=== PATIENT | female | born 1960 | race African-American/Black ===

== ENCOUNTER 2018-02-14 01:13 | Inpatient (IN) | payer MEDICARE, BC ==
[2018-02-14] MEDS: morphine 4 MG/ML VIAL IV ×2 (03:34→21:36)
[2018-02-14] MEDS: ONDANSETRON 4 MG INJ IV (03:34)
[2018-02-14 05:47] LABS: ADD MAN DIFF? NO
[2018-02-14 05:50] LABS: BASOPHILS % 0.2 % (0.0-2.0); EOSINOPHILS % 0.2 % (0.0-7.0); HEMATOCRIT 27.7 % (37.0-47.0); HEMOGLOBIN 9.3 g/dl (12.0-16.0); LYMPHOCYTES # 0.9 10^3/ul (0.8-2.9); LYMPHOCYTES % 7.4 % (15.0-51.0); MEAN CORPUSCULAR HGB CONC 33.6 g/dl (32.0-37.0); MEAN CORPUSCULAR VOLUME 92.3 fl (82.0-101.0); MEAN PLATELET VOLUME 10.2 fl (7.4-10.4); MONOCYTE # 0.6 10^3/ul (0.3-0.9); MONOCYTES % 4.8 % (0.0-11.0); NEUTROPHIL # 10.1 10^3/ul (1.6-7.5); NEUTROPHILS % 87.1 % (39.0-77.0); PLATELET COUNT 267 10^3/UL (140-415); RED CELL DISTRIBUTION WIDTH 13.6 % (11.5-14.5)
[2018-02-14 05:50] LABS: WHITE BLOOD COUNT 11.6 10^3/ul (4.8-10.8)
[2018-02-14 06:13] LABS: ANION GAP 9 (5-13); BLOOD UREA NITROGEN 19 mg/dl (7-20); CALCIUM 9.6 mg/dl (8.4-10.2); CARBON DIOXIDE 29 mmol/L (21-31); CHLORIDE 103 mmol/L (97-110); CREATININE 4.74 mg/dl (0.44-1.00); Estimated GFR 11 mL/min (>60); GLUCOSE 178 mg/dl (70-220); POTASSIUM 5.5 mmol/L (3.5-5.1); SODIUM 141 mmol/L (135-144)
[2018-02-14 06:21] LABS: TROPONIN-I 0.032 ng/ml (0.000-0.120)
[2018-02-14] MEDS ORDERED: ACETAMINOPHEN 325 MG TAB PO (12:00)
[2018-02-14] MEDS: HYDROmorphONE 0.5 MG/0.5 ML SYG IV (13:16)
[2018-02-14] MEDS ORDERED: ZOLPIDEM 5 MG TAB PO (14:30)
[2018-02-14] MEDS ORDERED: SOD CHLORIDE 0.9% 250 ML IV (17:00)
[2018-02-14] MEDS: SEVELAMER CARBONATE 0.8 GM PKT PO (17:10)
[2018-02-14] MEDS: FAMOTIDINE 20 MG TAB PO (17:10)
[2018-02-14] MEDS ORDERED: SODIUM CHLORIDE 0.9% 250 ML BAG IV* (17:30)
[2018-02-14] MEDS ORDERED: morphine 2 MG INJ IV (17:30)
[2018-02-14] MEDS: BACLOFEN 10 MG TAB PO (21:00)
[2018-02-14] MEDS: HEPARIN 5,000 UNIT/1 ML VIAL SC (21:31)
[2018-02-15 05:03] LABS: ADD MAN DIFF? NO
[2018-02-15 05:13] LABS: BASOPHIL # 0.1 10^3/ul (0.0-0.1); BASOPHILS % 0.7 % (0.0-2.0); EOSINOPHILS # 0.3 10^3/ul (0.0-0.5); EOSINOPHILS % 3.9 % (0.0-7.0); HEMATOCRIT 24.1 % (37.0-47.0); LYMPHOCYTES # 2.5 10^3/ul (0.8-2.9); LYMPHOCYTES % 34.4 % (15.0-51.0); MEAN CORPUSCULAR HEMOGLOBIN 30.7 pg (29.0-33.0); MEAN CORPUSCULAR HGB CONC 33.2 g/dl (32.0-37.0); MEAN CORPUSCULAR VOLUME 92.3 fl (82.0-101.0); MEAN PLATELET VOLUME 10.4 fl (7.4-10.4); MONOCYTE # 0.7 10^3/ul (0.3-0.9); MONOCYTES % 9.6 % (0.0-11.0); NEUTROPHIL # 3.8 10^3/ul (1.6-7.5); NEUTROPHILS % 51.1 % (39.0-77.0); PLATELET COUNT 251 10^3/UL (140-415); RED BLOOD COUNT 2.61 10^6/ul (4.20-5.40); RED CELL DISTRIBUTION WIDTH 13.5 % (11.5-14.5)
[2018-02-15 05:13] LABS: WHITE BLOOD COUNT 7.4 10^3/ul (4.8-10.8)
[2018-02-15 05:38] LABS: ANION GAP 9 (5-13); BLOOD UREA NITROGEN 32 mg/dl (7-20); CALCIUM 9.7 mg/dl (8.4-10.2); CARBON DIOXIDE 29 mmol/L (21-31); CHLORIDE 103 mmol/L (97-110); Estimated GFR 7 mL/min (>60); GLUCOSE 96 mg/dl (70-220); MAGNESIUM 2.3 mg/dl (1.7-2.5); SODIUM 141 mmol/L (135-144)
[2018-02-15 05:38] LABS: PHOSPHORUS 6.8 mg/dl (2.5-4.9)
[2018-02-15 05:42] LABS: HEMOGLOBIN A1C 5.8 % (0-5.9)
[2018-02-15] MEDS: SEVELAMER CARBONATE 0.8 GM PKT PO ×3 (07:50→17:19)
[2018-02-15] MEDS: FAMOTIDINE 20 MG TAB PO (09:00)
[2018-02-15] MEDS: BACLOFEN 10 MG TAB PO ×3 (09:00→21:43)
[2018-02-15] MEDS ORDERED: CLOPIDOGREL 75 MG TAB PO (09:00)
[2018-02-15] MEDS: HEPARIN 5,000 UNIT/1 ML VIAL SC ×2 (09:00→22:13)
[2018-02-15 09:10] LABS: HEPATITIS B SURFACE ANTIGEN NEGATIVE (NEGATIVE)
[2018-02-15 09:25] LABS: IMMEDIATE SPIN CROSSMATCH 1 3
[2018-02-15] MEDS: HEPARIN 1000 UNITS/ML 10 ML INJ CATHETER (12:10)
[2018-02-15] MEDS: HYDROCODONE/APAP (5/325) TAB PO ×2 (17:33→21:44)
[2018-02-16 07:58] LABS: ADD MAN DIFF? NO
[2018-02-16 08:04] LABS: WHITE BLOOD COUNT 7.7 10^3/ul (4.8-10.8)
[2018-02-16 08:04] LABS: BASOPHIL # 0.1 10^3/ul (0.0-0.1); BASOPHILS % 0.6 % (0.0-2.0); EOSINOPHILS # 0.3 10^3/ul (0.0-0.5); EOSINOPHILS % 3.6 % (0.0-7.0); HEMATOCRIT 32.1 % (37.0-47.0); HEMOGLOBIN 10.4 g/dl (12.0-16.0); LYMPHOCYTES # 2.7 10^3/ul (0.8-2.9); LYMPHOCYTES % 35.5 % (15.0-51.0); MEAN CORPUSCULAR HEMOGLOBIN 29.7 pg (29.0-33.0); MEAN CORPUSCULAR HGB CONC 32.4 g/dl (32.0-37.0); MEAN CORPUSCULAR VOLUME 91.7 fl (82.0-101.0); MEAN PLATELET VOLUME 11.4 fl (7.4-10.4); MONOCYTE # 0.8 10^3/ul (0.3-0.9); MONOCYTES % 10.1 % (0.0-11.0); NEUTROPHIL # 3.8 10^3/ul (1.6-7.5); NEUTROPHILS % 49.8 % (39.0-77.0); PLATELET COUNT 141 10^3/UL (140-415); RED CELL DISTRIBUTION WIDTH 13.6 % (11.5-14.5)
[2018-02-16 08:23] LABS: ANION GAP 13 (5-13); BLOOD UREA NITROGEN 28 mg/dl (7-20); CALCIUM 9.9 mg/dl (8.4-10.2); CARBON DIOXIDE 28 mmol/L (21-31); CHLORIDE 100 mmol/L (97-110); CREATININE 6.66 mg/dl (0.44-1.00); Estimated GFR 8 mL/min (>60); GLUCOSE 74 mg/dl (70-220); POTASSIUM 5.2 mmol/L (3.5-5.1); SODIUM 141 mmol/L (135-144)
[2018-02-16] MEDS: BACLOFEN 10 MG TAB PO ×3 (09:12→20:43)
[2018-02-16] MEDS: FAMOTIDINE 20 MG TAB PO (09:12)
[2018-02-16] MEDS: SEVELAMER CARBONATE 0.8 GM PKT PO ×3 (09:12→17:55)
[2018-02-16] MEDS: HYDROCODONE/APAP (5/325) TAB PO ×2 (09:32→15:13)
[2018-02-16] MEDS: DOCUSATE SODIUM 100 MG CAP PO (09:32)
[2018-02-16] MEDS: HEPARIN 5,000 UNIT/1 ML VIAL SC ×2 (09:34→20:51)
[2018-02-17] MEDS: ONDANSETRON 4 MG INJ IV ×2 (07:43→21:01)
[2018-02-17] MEDS: BACLOFEN 10 MG TAB PO ×3 (08:49→20:59)
[2018-02-17] MEDS: FAMOTIDINE 20 MG TAB PO (08:49)
[2018-02-17] MEDS: SEVELAMER CARBONATE 0.8 GM PKT PO ×3 (08:49→17:32)
[2018-02-17] MEDS: HEPARIN 5,000 UNIT/1 ML VIAL SC ×2 (08:56→20:59)
[2018-02-17] MEDS: ACETAMINOPHEN 325 MG TAB PO (12:10)
[2018-02-17] MEDS: HYDROCODONE/APAP (5/325) TAB PO (13:15)
[2018-02-17] MEDS ORDERED: HYDROCODONE/APAP (7.5/325) TAB PO (14:00)
[2018-02-17] MEDS: KETOROLAC 15 MG INJ IV (14:12)
[2018-02-17 16:26] LABS: ADD MAN DIFF? NO
[2018-02-17 16:30] LABS: BASOPHILS % 0.2 % (0.0-2.0); EOSINOPHILS # 0.3 10^3/ul (0.0-0.5); EOSINOPHILS % 3.4 % (0.0-7.0); HEMATOCRIT 31.6 % (37.0-47.0); HEMOGLOBIN 10.2 g/dl (12.0-16.0); LYMPHOCYTES # 2.4 10^3/ul (0.8-2.9); LYMPHOCYTES % 28.4 % (15.0-51.0); MEAN CORPUSCULAR HGB CONC 32.3 g/dl (32.0-37.0); MEAN CORPUSCULAR VOLUME 92.9 fl (82.0-101.0); MONOCYTE # 0.8 10^3/ul (0.3-0.9); NEUTROPHIL # 4.8 10^3/ul (1.6-7.5); NEUTROPHILS % 57.6 % (39.0-77.0); PLATELET COUNT 273 10^3/UL (140-415); RED CELL DISTRIBUTION WIDTH 13.5 % (11.5-14.5)
[2018-02-17 16:30] LABS: WHITE BLOOD COUNT 8.3 10^3/ul (4.8-10.8)
[2018-02-17 16:44] LABS: ANION GAP 12 (5-13); BLOOD UREA NITROGEN 51 mg/dl (7-20); CALCIUM 9.6 mg/dl (8.4-10.2); CARBON DIOXIDE 28 mmol/L (21-31); CHLORIDE 99 mmol/L (97-110); CREATININE 9.48 mg/dl (0.44-1.00); Estimated GFR 5 mL/min (>60); GLUCOSE 140 mg/dl (70-220); POTASSIUM 5.5 mmol/L (3.5-5.1); SODIUM 139 mmol/L (135-144)
[2018-02-18] MEDS: ACETAMINOPHEN 325 MG TAB PO ×2 (06:43→23:57)
[2018-02-18] MEDS: SEVELAMER CARBONATE 0.8 GM PKT PO ×3 (07:50→17:55)
[2018-02-18] MEDS ORDERED: KETOROLAC 15 MG INJ IV (08:00)
[2018-02-18 08:39] LABS: ADD MAN DIFF? NO
[2018-02-18 08:44] LABS: BASOPHILS % 0.3 % (0.0-2.0); EOSINOPHILS # 0.3 10^3/ul (0.0-0.5); HEMATOCRIT 33.2 % (37.0-47.0); HEMOGLOBIN 10.7 g/dl (12.0-16.0); LYMPHOCYTES # 2.1 10^3/ul (0.8-2.9); LYMPHOCYTES % 24.4 % (15.0-51.0); MEAN CORPUSCULAR HEMOGLOBIN 29.7 pg (29.0-33.0); MEAN CORPUSCULAR HGB CONC 32.2 g/dl (32.0-37.0); MEAN CORPUSCULAR VOLUME 92.2 fl (82.0-101.0); MEAN PLATELET VOLUME 9.6 fl (7.4-10.4); MONOCYTE # 0.8 10^3/ul (0.3-0.9); MONOCYTES % 9.7 % (0.0-11.0); NEUTROPHIL # 5.3 10^3/ul (1.6-7.5); NEUTROPHILS % 62.3 % (39.0-77.0); PLATELET COUNT 312 10^3/UL (140-415); RED CELL DISTRIBUTION WIDTH 13.4 % (11.5-14.5)
[2018-02-18 08:44] LABS: WHITE BLOOD COUNT 8.6 10^3/ul (4.8-10.8)
[2018-02-18] MEDS: HEPARIN 5,000 UNIT/1 ML VIAL SC (09:00)
[2018-02-18] MEDS: BACLOFEN 10 MG TAB PO ×3 (09:00→21:35)
[2018-02-18] MEDS: FAMOTIDINE 20 MG TAB PO (09:00)
[2018-02-18 09:07] LABS: ANION GAP 14 (5-13); BLOOD UREA NITROGEN 56 mg/dl (7-20); CALCIUM 10.4 mg/dl (8.4-10.2); CARBON DIOXIDE 27 mmol/L (21-31); CHLORIDE 99 mmol/L (97-110); CREATININE 10.65 mg/dl (0.44-1.00); Estimated GFR 4 mL/min (>60); GLUCOSE 113 mg/dl (70-220); POTASSIUM 5.6 mmol/L (3.5-5.1); SODIUM 140 mmol/L (135-144)
[2018-02-18 15:00] LABS: IMMEDIATE SPIN CROSSMATCH 1 3
[2018-02-18] MEDS: ONDANSETRON 4 MG INJ IV ×2 (16:54→23:57)
[2018-02-18] MEDS: HEPARIN 1000 UNITS/ML 10 ML INJ CATHETER (18:29)
[2018-02-18 18:34] LABS: ADD MAN DIFF? NO
[2018-02-18 18:35] LABS: BASOPHILS % 0.3 % (0.0-2.0); EOSINOPHILS # 0.2 10^3/ul (0.0-0.5); EOSINOPHILS % 3.1 % (0.0-7.0); HEMATOCRIT 38.5 % (37.0-47.0); HEMOGLOBIN 12.4 g/dl (12.0-16.0); LYMPHOCYTES # 1.1 10^3/ul (0.8-2.9); MEAN CORPUSCULAR HEMOGLOBIN 29.7 pg (29.0-33.0); MEAN CORPUSCULAR HGB CONC 32.2 g/dl (32.0-37.0); MEAN CORPUSCULAR VOLUME 92.1 fl (82.0-101.0); MEAN PLATELET VOLUME 9.2 fl (7.4-10.4); MONOCYTE # 0.5 10^3/ul (0.3-0.9); MONOCYTES % 6.8 % (0.0-11.0); NEUTROPHIL # 5.5 10^3/ul (1.6-7.5); NEUTROPHILS % 74.5 % (39.0-77.0); PLATELET COUNT 263 10^3/UL (140-415); RED BLOOD COUNT 4.18 10^6/ul (4.20-5.40); RED CELL DISTRIBUTION WIDTH 13.2 % (11.5-14.5)
[2018-02-18 18:35] LABS: WHITE BLOOD COUNT 7.4 10^3/ul (4.8-10.8)
[2018-02-18 19:24] LABS: ANION GAP 15 (5-13); BLOOD UREA NITROGEN 28 mg/dl (7-20); CALCIUM 9.8 mg/dl (8.4-10.2); CARBON DIOXIDE 27 mmol/L (21-31); CHLORIDE 101 mmol/L (97-110); CREATININE 5.79 mg/dl (0.44-1.00); Estimated GFR 9 mL/min (>60); GLUCOSE 96 mg/dl (70-220); POTASSIUM 4.7 mmol/L (3.5-5.1); SODIUM 143 mmol/L (135-144)
[2018-02-19 05:14] LABS: ADD MAN DIFF? NO
[2018-02-19 05:19] LABS: WHITE BLOOD COUNT 6.6 10^3/ul (4.8-10.8)
[2018-02-19 05:19] LABS: BASOPHILS % 0.3 % (0.0-2.0); EOSINOPHILS # 0.2 10^3/ul (0.0-0.5); EOSINOPHILS % 3.2 % (0.0-7.0); HEMATOCRIT 34.8 % (37.0-47.0); HEMOGLOBIN 11.2 g/dl (12.0-16.0); LYMPHOCYTES # 1.9 10^3/ul (0.8-2.9); LYMPHOCYTES % 28.2 % (15.0-51.0); MEAN CORPUSCULAR HEMOGLOBIN 29.9 pg (29.0-33.0); MEAN CORPUSCULAR HGB CONC 32.2 g/dl (32.0-37.0); MEAN CORPUSCULAR VOLUME 92.8 fl (82.0-101.0); MEAN PLATELET VOLUME 9.6 fl (7.4-10.4); MONOCYTE # 0.6 10^3/ul (0.3-0.9); MONOCYTES % 8.8 % (0.0-11.0); NEUTROPHIL # 3.9 10^3/ul (1.6-7.5); NEUTROPHILS % 59.3 % (39.0-77.0); PLATELET COUNT 267 10^3/UL (140-415); RED BLOOD COUNT 3.75 10^6/ul (4.20-5.40); RED CELL DISTRIBUTION WIDTH 13.4 % (11.5-14.5)
[2018-02-19 05:42] LABS: ANION GAP 13 (5-13); BLOOD UREA NITROGEN 38 mg/dl (7-20); CALCIUM 9.9 mg/dl (8.4-10.2); CARBON DIOXIDE 29 mmol/L (21-31); CHLORIDE 101 mmol/L (97-110); CREATININE 7.66 mg/dl (0.44-1.00); Estimated GFR 7 mL/min (>60); GLUCOSE 92 mg/dl (70-220); POTASSIUM 5.4 mmol/L (3.5-5.1); SODIUM 143 mmol/L (135-144)
[2018-02-19] MEDS: SEVELAMER CARBONATE 0.8 GM PKT PO ×3 (07:50→19:28)
[2018-02-19] MEDS: HEPARIN 5,000 UNIT/1 ML VIAL SC (08:00)
[2018-02-19] MEDS: ONDANSETRON 4 MG INJ IV (08:00)
[2018-02-19] MEDS: BACLOFEN 10 MG TAB PO ×3 (09:00→20:22)
[2018-02-19] MEDS: FAMOTIDINE 20 MG TAB PO (09:00)
[2018-02-19 18:28] LABS: CREATINE KINASE 44 IU/L (23-200)
[2018-02-19 18:41] LABS: CK INDEX 0.6; CK-MB 0.27 ng/ml (0.0-2.4); TROPONIN-I 0.023 ng/ml (0.000-0.120)
[2018-02-19] MEDS: BISACODYL (EC) 5 MG TAB PO (19:28)
[2018-02-19] MEDS: DOCUSATE SODIUM 100 MG CAP PO (19:28)
[2018-02-20 01:03] LABS: CREATINE KINASE 56 IU/L (23-200)
[2018-02-20 01:15] LABS: CK INDEX 0.5; CK-MB 0.28 ng/ml (0.0-2.4); TROPONIN-I 0.025 ng/ml (0.000-0.120)
[2018-02-20] MEDS: ONDANSETRON 4 MG INJ IV (03:10)
[2018-02-20 05:09] LABS: ADD MAN DIFF? NO
[2018-02-20 05:20] LABS: BASOPHIL # 0.1 10^3/ul (0.0-0.1); BASOPHILS % 0.7 % (0.0-2.0); EOSINOPHILS # 0.3 10^3/ul (0.0-0.5); EOSINOPHILS % 3.4 % (0.0-7.0); HEMATOCRIT 33.4 % (37.0-47.0); HEMOGLOBIN 10.8 g/dl (12.0-16.0); LYMPHOCYTES % 25.7 % (15.0-51.0); MEAN CORPUSCULAR HEMOGLOBIN 30.2 pg (29.0-33.0); MEAN CORPUSCULAR HGB CONC 32.3 g/dl (32.0-37.0); MEAN CORPUSCULAR VOLUME 93.3 fl (82.0-101.0); MEAN PLATELET VOLUME 10.1 fl (7.4-10.4); MONOCYTE # 0.9 10^3/ul (0.3-0.9); MONOCYTES % 11.7 % (0.0-11.0); NEUTROPHIL # 4.5 10^3/ul (1.6-7.5); NEUTROPHILS % 58.2 % (39.0-77.0); PLATELET COUNT 237 10^3/UL (140-415); RED BLOOD COUNT 3.58 10^6/ul (4.20-5.40); RED CELL DISTRIBUTION WIDTH 13.6 % (11.5-14.5)
[2018-02-20 05:20] LABS: WHITE BLOOD COUNT 7.7 10^3/ul (4.8-10.8)
[2018-02-20 05:39] LABS: ANION GAP 13 (5-13); BLOOD UREA NITROGEN 56 mg/dl (7-20); CARBON DIOXIDE 27 mmol/L (21-31); CHLORIDE 101 mmol/L (97-110); CREATININE 9.91 mg/dl (0.44-1.00); Estimated GFR 5 mL/min (>60); GLUCOSE 89 mg/dl (70-220); POTASSIUM 5.6 mmol/L (3.5-5.1); SODIUM 141 mmol/L (135-144)
[2018-02-20 05:42] LABS: CHOLESTEROL 125 mg/dl (100-200)
[2018-02-20 05:42] LABS: HDL CHOLESTEROL 41 mg/dl (35-98); LDL CHOLESTEROL,CALCULATED 64 mg/dl; TRIGLYCERIDES 98 mg/dl (0-149)
[2018-02-20] MEDS ORDERED: ROCURONIUM 50 MG INJ ×2 (07:00→14:53)
[2018-02-20] MEDS: SEVELAMER CARBONATE 0.8 GM PKT PO ×3 (07:50→20:24)
[2018-02-20] MEDS: FAMOTIDINE 20 MG TAB PO (07:53)
[2018-02-20] MEDS: BACLOFEN 10 MG TAB PO ×3 (07:53→20:25)
[2018-02-20] MEDS ORDERED: PROPOFOL 20 ML (14:53)
[2018-02-20] MEDS ORDERED: morphine 10 MG INJ (15:21)
[2018-02-20] MEDS ORDERED: CEFAZOLIN 1 GM INJ (15:21)
[2018-02-20] MEDS ORDERED: PHENYLephrine (100 MCG/ML) 10ML SYG (15:24)
[2018-02-20] MEDS ORDERED: DEXAMETHASONE 4 MG/ML 5 ML INJ (15:53)
[2018-02-20] MEDS ORDERED: ONDANSETRON 4 MG INJ (15:54)
[2018-02-20] MEDS ORDERED: LIDOCAINE 2% (SDV) 5 ML INJ (15:54)
[2018-02-20] MEDS: POLYMYXIN/BACITRACIN 1L IRRIG IRR (16:11)
[2018-02-20] MEDS ORDERED: EPHEDrine SULFATE 50 MG/5 ML SYG (18:24)
[2018-02-20] MEDS ORDERED: morphine 4 MG/ML VIAL IV (18:30)
[2018-02-20] MEDS ORDERED: METOCLOPRAMIDE 10 MG INJ IV (18:30)
[2018-02-20] MEDS ORDERED: MEPERIDINE 25 MG INJ IV (18:30)
[2018-02-20] MEDS ORDERED: hydrALAzine 20 MG INJ IV (18:30)
[2018-02-20] MEDS ORDERED: ONDANSETRON 4 MG INJ IV (18:30)
[2018-02-20] MEDS ORDERED: OXYCODONE/ACETAMINOPHEN (5/325) TAB PO ×2 (18:30)
[2018-02-20] MEDS ORDERED: HYDROmorphONE 1 MG/5 ML IV SYRINGE IV ×3 (18:30)
[2018-02-20] MEDS ORDERED: LABETALOL HCL 20MG INJ IV (18:30)
[2018-02-20] MEDS ORDERED: DIPHENHYDRAMINE 50 MG INJ IV (18:30)
[2018-02-20] MEDS ORDERED: ALBUTEROL 0.083% (NEB) 2.5 MG/3 ML AMP HHN (18:30)
[2018-02-20] MEDS: CEFAZOLIN 1 GM/50 ML (PMX) 50 ML IVPB (19:01)
[2018-02-20] MEDS: EPHEDrine SULFATE 50 MG/5 ML SYG IV (19:01)
[2018-02-20] MEDS ORDERED: ALBUMIN HUMAN 5% 250 ML (19:27)
[2018-02-20] MEDS: ALBUMIN HUMAN 5% 250 ML IV (19:34)
[2018-02-20] MEDS: SOD CHLORIDE 0.9% 1,000 ML IV (20:24)
[2018-02-20] MEDS: HYDROCODONE/APAP (5/325) TAB PO (22:24)
[2018-02-21] MEDS: ONDANSETRON 4 MG INJ IV (01:11)
[2018-02-21] MEDS: SOD CHLORIDE 0.9% 1,000 ML IV ×2 (05:07→15:58)
[2018-02-21 05:19] LABS: ADD MAN DIFF? NO; BASOPHILS % 0.1 % (0.0-2.0); HEMATOCRIT 27.7 % (37.0-47.0); HEMOGLOBIN 8.8 g/dl (12.0-16.0); LYMPHOCYTES # 0.7 10^3/ul (0.8-2.9); LYMPHOCYTES % 5.1 % (15.0-51.0); MEAN CORPUSCULAR HEMOGLOBIN 30.1 pg (29.0-33.0); MEAN CORPUSCULAR HGB CONC 31.8 g/dl (32.0-37.0); MEAN CORPUSCULAR VOLUME 94.9 fl (82.0-101.0); MEAN PLATELET VOLUME 9.8 fl (7.4-10.4); MONOCYTE # 0.6 10^3/ul (0.3-0.9); MONOCYTES % 4.6 % (0.0-11.0); NEUTROPHIL # 11.7 10^3/ul (1.6-7.5); NEUTROPHILS % 89.7 % (39.0-77.0); PLATELET COUNT 212 10^3/UL (140-415); RED BLOOD COUNT 2.92 10^6/ul (4.20-5.40); RED CELL DISTRIBUTION WIDTH 13.4 % (11.5-14.5)
[2018-02-21 05:19] LABS: WHITE BLOOD COUNT 13.1 10^3/ul (4.8-10.8)
[2018-02-21] MEDS: CEFAZOLIN 1 GM/50 ML (PMX) 50 ML IVPB (05:26)
[2018-02-21 05:54] LABS: ANION GAP 20 (5-13); BLOOD UREA NITROGEN 40 mg/dl (7-20); CALCIUM 9.3 mg/dl (8.4-10.2); CARBON DIOXIDE 21 mmol/L (21-31); CHLORIDE 101 mmol/L (97-110); CREATININE 6.72 mg/dl (0.44-1.00); Estimated GFR 8 mL/min (>60); GLUCOSE 242 mg/dl (70-220); POTASSIUM 5.3 mmol/L (3.5-5.1); SODIUM 142 mmol/L (135-144)
[2018-02-21] MEDS ORDERED: VITAMIN A & D 5 GM OINT PACKET TOP (05:55)
[2018-02-21] MEDS ORDERED: ENOXAPARIN 40 MG/0.4 ML SYG SC (09:00)
[2018-02-21] MEDS: BACLOFEN 10 MG TAB PO ×3 (09:44→21:00)
[2018-02-21] MEDS: FAMOTIDINE 20 MG TAB PO (09:44)
[2018-02-21] MEDS: SEVELAMER CARBONATE 0.8 GM PKT PO ×3 (09:45→18:11)
[2018-02-21] MEDS: HEPARIN 5,000 UNIT/1 ML VIAL SC ×2 (09:46→22:05)
[2018-02-22] MEDS: SOD CHLORIDE 0.9% 1,000 ML IV (02:31)
[2018-02-22 06:28] LABS: ANION GAP 14 (5-13); BLOOD UREA NITROGEN 53 mg/dl (7-20); CALCIUM 9.2 mg/dl (8.4-10.2); CARBON DIOXIDE 20 mmol/L (21-31); CHLORIDE 104 mmol/L (97-110); Estimated GFR 8 mL/min (>60); GLUCOSE 140 mg/dl (70-220); POTASSIUM 4.9 mmol/L (3.5-5.1); SODIUM 138 mmol/L (135-144)
[2018-02-22] MEDS: SEVELAMER CARBONATE 0.8 GM PKT PO ×3 (07:50→18:16)
[2018-02-22] MEDS: BACLOFEN 10 MG TAB PO ×3 (09:00→20:40)
[2018-02-22] MEDS: HEPARIN 1000 UNITS/ML 10 ML INJ CATHETER ×2 (09:30→13:16)
[2018-02-22] MEDS: ALBUMIN HUMAN 25% 100 ML IV (10:45)
[2018-02-22] MEDS: FAMOTIDINE 20 MG TAB PO (14:27)
[2018-02-22] MEDS: HEPARIN 5,000 UNIT/1 ML VIAL SC ×2 (14:29→20:43)
[2018-02-22 14:54] LABS: ABNORMAL IP MESSAGE 1; HEMATOCRIT 20.7 % (37.0-47.0); MEAN CORPUSCULAR HEMOGLOBIN 30.7 pg (29.0-33.0); MEAN CORPUSCULAR HGB CONC 32.4 g/dl (32.0-37.0); PLATELET COUNT 213 10^3/UL (140-415); RED BLOOD COUNT 2.18 10^6/ul (4.20-5.40)
[2018-02-22 14:54] LABS: WHITE BLOOD COUNT 8.7 10^3/ul (4.8-10.8)
[2018-02-22] MEDS: HYDROCODONE/APAP (5/325) TAB PO ×2 (15:07→20:41)
[2018-02-22 15:19] LABS: POSITIVE DIFF @See below
[2018-02-22 15:21] LABS: HEMOGLOBIN 6.7 g/dl (12.0-16.0)
[2018-02-22 15:22] LABS: ADD MAN DIFF? YES
[2018-02-22 15:41] LABS: HYPOCHROMASIA 1+ (0-0); LYMPHOCYTES #M 3.2 10^3/ul (0.8-2.9); LYMPHOCYTES % (M) 37 % (15-51); METAMYELOCYTES #M 0.1 10^3/ul (0.0-0.0); METAMYELOCYTES %M 2 % (0-0); MONOCYTE #M 0.4 10^3/ul (0.3-0.9); MONOCYTES % (M) 5 % (0-11); MYELOCYTES % (M) 1 % (0-0); PLATELET ESTIMATE NORMAL; POLYCHROMASIA 1+ (0-0); SEGMENTED NEUTROPHILS (M) % 55 % (39-77); SMUDGE%M 2 % (0-0)
[2018-02-22 16:27] LABS: HEMATOCRIT 19.4 % (37.0-47.0); HEMOGLOBIN 6.2 g/dl (12.0-16.0)
[2018-02-22 22:04] LABS: IMMEDIATE SPIN CROSSMATCH 1 1
[2018-02-23] MEDS: BISACODYL (EC) 5 MG TAB PO (06:00)
[2018-02-23 06:06] LABS: ADD MAN DIFF? NO
[2018-02-23 06:11] LABS: BASOPHILS % 0.6 % (0.0-2.0); EOSINOPHILS # 0.2 10^3/ul (0.0-0.5); EOSINOPHILS % 3.4 % (0.0-7.0); HEMATOCRIT 22.2 % (37.0-47.0); HEMOGLOBIN 7.3 g/dl (12.0-16.0); LYMPHOCYTES # 2.1 10^3/ul (0.8-2.9); LYMPHOCYTES % 29.2 % (15.0-51.0); MEAN CORPUSCULAR HEMOGLOBIN 30.2 pg (29.0-33.0); MEAN CORPUSCULAR HGB CONC 32.9 g/dl (32.0-37.0); MEAN CORPUSCULAR VOLUME 91.7 fl (82.0-101.0); MEAN PLATELET VOLUME 9.8 fl (7.4-10.4); MONOCYTE # 0.7 10^3/ul (0.3-0.9); MONOCYTES % 9.4 % (0.0-11.0); NEUTROPHILS % 56.8 % (39.0-77.0); PLATELET COUNT 237 10^3/UL (140-415); RED BLOOD COUNT 2.42 10^6/ul (4.20-5.40); RED CELL DISTRIBUTION WIDTH 15.8 % (11.5-14.5)
[2018-02-23 06:38] LABS: ANION GAP 10 (5-13); BLOOD UREA NITROGEN 28 mg/dl (7-20); CARBON DIOXIDE 27 mmol/L (21-31); CHLORIDE 100 mmol/L (97-110); CREATININE 5.01 mg/dl (0.44-1.00); Estimated GFR 11 mL/min (>60); GLUCOSE 97 mg/dl (70-220); POTASSIUM 3.9 mmol/L (3.5-5.1); SODIUM 137 mmol/L (135-144)
[2018-02-23] MEDS: SEVELAMER CARBONATE 0.8 GM PKT PO ×3 (09:11→18:15)
[2018-02-23] MEDS: BACLOFEN 10 MG TAB PO ×3 (09:12→21:38)
[2018-02-23] MEDS: FAMOTIDINE 20 MG TAB PO (09:12)
[2018-02-23] MEDS: HEPARIN 5,000 UNIT/1 ML VIAL SC ×2 (09:13→21:43)
[2018-02-23] MEDS: MAGNESIUM CITRATE 300 ML BTL PO (14:12)
[2018-02-23] MEDS: ALBUMIN HUMAN 25% 100 ML IV (16:35)
[2018-02-23 16:38] LABS: HEMATOCRIT 22.1 % (37.0-47.0)
[2018-02-23 16:56] LABS: ANION GAP 7 (5-13); BLOOD UREA NITROGEN 31 mg/dl (7-20); CARBON DIOXIDE 28 mmol/L (21-31); CHLORIDE 100 mmol/L (97-110); CREATININE 5.37 mg/dl (0.44-1.00); Estimated GFR 10 mL/min (>60); GLUCOSE 96 mg/dl (70-220); SODIUM 135 mmol/L (135-144)
[2018-02-23] MEDS: HEPARIN 1000 UNITS/ML 10 ML INJ CATHETER (18:37)
[2018-02-23] MEDS: DOCUSATE SODIUM 100 MG CAP PO (21:38)
[2018-02-24] MEDS: HYDROCODONE/APAP (5/325) TAB PO (01:46)
[2018-02-24] MEDS: DOCUSATE SODIUM 100 MG CAP PO ×2 (08:44→21:40)
[2018-02-24] MEDS: BACLOFEN 10 MG TAB PO ×3 (08:44→21:40)
[2018-02-24] MEDS: FAMOTIDINE 20 MG TAB PO (08:44)
[2018-02-24] MEDS: SEVELAMER CARBONATE 0.8 GM PKT PO ×3 (08:44→17:45)
[2018-02-24] MEDS: BISACODYL (EC) 5 MG TAB PO (08:44)
[2018-02-24] MEDS: HEPARIN 5,000 UNIT/1 ML VIAL SC ×2 (08:45→21:43)
[2018-02-24] MEDS ORDERED: VITAMIN A & D 5 GM OINT PACKET TOP (21:52)
[2018-02-24] MEDS: ONDANSETRON 4 MG INJ IV (21:53)
[2018-02-25] MEDS: ACETAMINOPHEN 325 MG TAB PO (01:53)
[2018-02-25] MEDS: SEVELAMER CARBONATE 0.8 GM PKT PO ×3 (08:30→17:55)
[2018-02-25] MEDS: DOCUSATE SODIUM 100 MG CAP PO ×2 (09:31→21:07)
[2018-02-25] MEDS: FAMOTIDINE 20 MG TAB PO (09:31)
[2018-02-25] MEDS: HEPARIN 5,000 UNIT/1 ML VIAL SC ×2 (09:31→21:11)
[2018-02-25] MEDS: BACLOFEN 10 MG TAB PO ×3 (09:31→21:07)
[2018-02-25] MEDS: FERROUS SULFATE (EC) 325 MG TAB PO (21:07)
[2018-02-26] MEDS: EPOETIN 10000 UNITS/1 ML INJ (ESRD) IV (01:52)
[2018-02-26] MEDS: HEPARIN 1000 UNITS/ML 10 ML INJ CATHETER (02:43)
[2018-02-26 05:42] LABS: ADD MAN DIFF? NO
[2018-02-26 05:54] LABS: BASOPHILS % 0.5 % (0.0-2.0); EOSINOPHILS # 0.3 10^3/ul (0.0-0.5); EOSINOPHILS % 4.4 % (0.0-7.0); HEMATOCRIT 31.1 % (37.0-47.0); HEMOGLOBIN 9.6 g/dl (12.0-16.0); LYMPHOCYTES # 0.9 10^3/ul (0.8-2.9); LYMPHOCYTES % 14.4 % (15.0-51.0); MEAN CORPUSCULAR HEMOGLOBIN 29.8 pg (29.0-33.0); MEAN CORPUSCULAR HGB CONC 30.9 g/dl (32.0-37.0); MEAN CORPUSCULAR VOLUME 96.6 fl (82.0-101.0); MEAN PLATELET VOLUME 9.2 fl (7.4-10.4); MONOCYTE # 0.5 10^3/ul (0.3-0.9); MONOCYTES % 7.8 % (0.0-11.0); NEUTROPHIL # 4.6 10^3/ul (1.6-7.5); NEUTROPHILS % 72.1 % (39.0-77.0); PLATELET COUNT 285 10^3/UL (140-415); RED BLOOD COUNT 3.22 10^6/ul (4.20-5.40); RED CELL DISTRIBUTION WIDTH 14.6 % (11.5-14.5)
[2018-02-26 05:54] LABS: WHITE BLOOD COUNT 6.4 10^3/ul (4.8-10.8)
[2018-02-26 06:17] LABS: ANION GAP 9 (5-13); BLOOD UREA NITROGEN 24 mg/dl (7-20); CALCIUM 9.9 mg/dl (8.4-10.2); CARBON DIOXIDE 28 mmol/L (21-31); CHLORIDE 101 mmol/L (97-110); CREATININE 4.52 mg/dl (0.44-1.00); Estimated GFR 12 mL/min (>60); GLUCOSE 76 mg/dl (70-220); POTASSIUM 4.6 mmol/L (3.5-5.1); SODIUM 138 mmol/L (135-144)
[2018-02-26] MEDS: FAMOTIDINE 20 MG TAB PO (09:01)
[2018-02-26] MEDS: SEVELAMER CARBONATE 0.8 GM PKT PO ×3 (09:01→17:55)
[2018-02-26] MEDS: FERROUS SULFATE (EC) 325 MG TAB PO ×2 (09:01→21:02)
[2018-02-26] MEDS: DOCUSATE SODIUM 100 MG CAP PO ×2 (09:01→21:02)
[2018-02-26] MEDS: BACLOFEN 10 MG TAB PO ×2 (09:02→13:39)
[2018-02-26] MEDS: HEPARIN 5,000 UNIT/1 ML VIAL SC ×2 (09:03→21:02)
[2018-02-26] MEDS: ACETAMINOPHEN 325 MG TAB PO (11:23)
[2018-02-27] MEDS: ACETAMINOPHEN 325 MG TAB PO ×2 (00:59→16:47)
[2018-02-27] MEDS: SEVELAMER CARBONATE 0.8 GM PKT PO ×3 (08:30→17:55)
[2018-02-27] MEDS: HEPARIN 1000 UNITS/ML 10 ML INJ CATHETER (12:52)
[2018-02-27] MEDS: FAMOTIDINE 20 MG TAB PO (13:40)
[2018-02-27] MEDS: FERROUS SULFATE (EC) 325 MG TAB PO ×2 (13:40→21:00)
[2018-02-27] MEDS: DOCUSATE SODIUM 100 MG CAP PO ×2 (13:40→21:00)
[2018-02-27] MEDS: EPOETIN 4000 UNITS/1 ML INJ (ESRD) IV (13:44)
[2018-02-27] MEDS: HEPARIN 5,000 UNIT/1 ML VIAL SC ×2 (13:47→21:14)
[2018-02-27 17:26] LABS: ADD UMIC YES; UR ASCORBIC ACID NEGATIVE (NEGATIVE); UR BACTERIA FEW /HPF (NONE SEEN); UR BILIRUBIN (Dip) NEGATIVE (NEGATIVE); UR BLOOD (Dip) NEGATIVE (NEGATIVE); UR CLARITY CLEAR (CLEAR); UR COLOR YELLOW (YELLOW); UR GLUCOSE (Dip) 1+ mg/dL (NEGATIVE); UR KETONES (Dip) NEGATIVE (NEGATIVE); UR LEUKOCYTE ESTERASE (Dip) NEGATIVE Leu/ul (NEGATIVE); UR NITRITE (Dip) NEGATIVE (NEGATIVE); UR RBC 1 /HPF (0-5); UR SPECIFIC GRAVITY (Dip) 1.008 (1.003-1.030); UR SQUAMOUS EPITHELIAL CELL FEW /HPF (FEW); UR TOTAL PROTEIN (Dip) 2+ mg/dl (NEGATIVE); UR UROBILINOGEN (Dip) NEGATIVE (NEGATIVE); UR WBC 2 /HPF (0-5)
[2018-02-27] MEDS ORDERED: VITAMIN A & D 5 GM OINT PACKET TOP (19:46)
[2018-02-28] MEDS: ACETAMINOPHEN 325 MG TAB PO ×2 (08:54→23:37)
[2018-02-28] MEDS: HEPARIN 5,000 UNIT/1 ML VIAL SC ×2 (08:56→22:04)
[2018-02-28] MEDS: SEVELAMER CARBONATE 0.8 GM PKT PO ×3 (08:58→17:55)
[2018-02-28] MEDS: FERROUS SULFATE (EC) 325 MG TAB PO ×2 (09:00→21:00)
[2018-02-28] MEDS: DOCUSATE SODIUM 100 MG CAP PO ×2 (09:00→21:00)
[2018-02-28] MEDS: FAMOTIDINE 20 MG TAB PO (09:00)
[2018-02-28] MEDS: DEXTROSE 50% 50 ML SYRINGE IV (11:17)
[2018-02-28 11:45] LABS: AMMONIA < 9 umol/l (9-30)
[2018-02-28] MEDS: VITAMIN A & D 5 GM OINT PACKET TOP ×2 (11:46→21:57)
[2018-02-28] MEDS ORDERED: GLUCAGON 1 MG INJ IM (14:00)
[2018-02-28] MEDS ORDERED: GLUCOSE GEL 15 GRAM TUBE PO ×2 (14:00)
[2018-02-28] MEDS ORDERED: DEXTROSE 50% 50 ML SYRINGE IV ×2 (14:00→19:00)
[2018-02-28] MEDS ORDERED: GLUCOSE GEL 15 GRAM TUBE BUCCAL (14:00)
[2018-02-28 15:23] LABS: ADD MAN DIFF? NO
[2018-02-28 15:24] LABS: BASOPHILS % 0.4 % (0.0-2.0); EOSINOPHILS # 0.1 10^3/ul (0.0-0.5); EOSINOPHILS % 1.2 % (0.0-7.0); HEMATOCRIT 27.9 % (37.0-47.0); HEMOGLOBIN 8.8 g/dl (12.0-16.0); LYMPHOCYTES # 1.2 10^3/ul (0.8-2.9); LYMPHOCYTES % 14.1 % (15.0-51.0); MEAN CORPUSCULAR HEMOGLOBIN 29.6 pg (29.0-33.0); MEAN CORPUSCULAR HGB CONC 31.5 g/dl (32.0-37.0); MEAN CORPUSCULAR VOLUME 93.9 fl (82.0-101.0); MEAN PLATELET VOLUME 8.8 fl (7.4-10.4); MONOCYTE # 0.6 10^3/ul (0.3-0.9); MONOCYTES % 7.2 % (0.0-11.0); NEUTROPHIL # 6.2 10^3/ul (1.6-7.5); NEUTROPHILS % 76.4 % (39.0-77.0); PLATELET COUNT 312 10^3/UL (140-415); RED BLOOD COUNT 2.97 10^6/ul (4.20-5.40); RED CELL DISTRIBUTION WIDTH 13.9 % (11.5-14.5)
[2018-02-28 15:24] LABS: WHITE BLOOD COUNT 8.2 10^3/ul (4.8-10.8)
[2018-02-28 15:41] LABS: ALBUMIN 3.8 g/dl (3.3-4.9); ALBUMIN/GLOBULIN RATIO 1.08; ALKALINE PHOSPHATASE 92 IU/L (42-121); ANION GAP 14 (5-13); ASPARTATE AMINO TRANSFERASE 20 IU/L (15-46); BILIRUBIN,INDIRECT 0.3 mg/dl (0-1.1); BILIRUBIN,TOTAL 0.3 mg/dl (0.2-1.3); BLOOD UREA NITROGEN 24 mg/dl (7-20); CALCIUM 9.9 mg/dl (8.4-10.2); CARBON DIOXIDE 27 mmol/L (21-31); CHLORIDE 93 mmol/L (97-110); CREATININE 5.46 mg/dl (0.44-1.00); Estimated GFR 10 mL/min (>60); GLUCOSE 78 mg/dl (70-220); POTASSIUM 4.2 mmol/L (3.5-5.1); SODIUM 134 mmol/L (135-144); TOTAL PROTEIN 7.3 g/dl (6.1-8.1)
[2018-02-28 15:51] LABS: ALANINE AMINOTRANSFERASE < 6 IU/L (13-69)
[2018-02-28] MEDS ORDERED: INSULIN ASPART [NOVOLOG] 3 ML PEN SC (17:25)
[2018-02-28] MEDS: ACCU-CHEK XX (17:25)
[2018-03-01] MEDS: HYDROCODONE/APAP (5/325) TAB PO (00:35)
[2018-03-01 06:48] LABS: ADD MAN DIFF? NO
[2018-03-01 06:52] LABS: WHITE BLOOD COUNT 7.3 10^3/ul (4.8-10.8)
[2018-03-01 06:52] LABS: BASOPHILS % 0.4 % (0.0-2.0); EOSINOPHILS # 0.2 10^3/ul (0.0-0.5); EOSINOPHILS % 2.1 % (0.0-7.0); HEMATOCRIT 26.9 % (37.0-47.0); HEMOGLOBIN 8.6 g/dl (12.0-16.0); LYMPHOCYTES # 1.7 10^3/ul (0.8-2.9); LYMPHOCYTES % 23.4 % (15.0-51.0); MEAN CORPUSCULAR HEMOGLOBIN 29.8 pg (29.0-33.0); MEAN CORPUSCULAR VOLUME 93.1 fl (82.0-101.0); MEAN PLATELET VOLUME 9.1 fl (7.4-10.4); MONOCYTE # 0.8 10^3/ul (0.3-0.9); MONOCYTES % 11.2 % (0.0-11.0); NEUTROPHIL # 4.6 10^3/ul (1.6-7.5); NEUTROPHILS % 62.5 % (39.0-77.0); PLATELET COUNT 318 10^3/UL (140-415); RED BLOOD COUNT 2.89 10^6/ul (4.20-5.40); RED CELL DISTRIBUTION WIDTH 14.2 % (11.5-14.5)
[2018-03-01] MEDS: ACCU-CHEK XX ×3 (07:20→16:59)
[2018-03-01 07:22] LABS: ANION GAP 14 (5-13); BLOOD UREA NITROGEN 29 mg/dl (7-20); CALCIUM 9.8 mg/dl (8.4-10.2); CARBON DIOXIDE 26 mmol/L (21-31); CHLORIDE 94 mmol/L (97-110); CREATININE 6.19 mg/dl (0.44-1.00); Estimated GFR 8 mL/min (>60); GLUCOSE 76 mg/dl (70-220); POTASSIUM 4.2 mmol/L (3.5-5.1); SODIUM 134 mmol/L (135-144)
[2018-03-01] MEDS: DOCUSATE SODIUM 100 MG CAP PO ×2 (08:50→21:40)
[2018-03-01] MEDS: FAMOTIDINE 20 MG TAB PO (08:50)
[2018-03-01] MEDS: VITAMIN A & D 5 GM OINT PACKET TOP ×2 (08:50→21:38)
[2018-03-01] MEDS: FERROUS SULFATE (EC) 325 MG TAB PO ×2 (08:50→21:38)
[2018-03-01] MEDS: HEPARIN 5,000 UNIT/1 ML VIAL SC ×2 (08:51→21:37)
[2018-03-01] MEDS: SEVELAMER CARBONATE 0.8 GM PKT PO ×3 (08:54→17:55)
[2018-03-01] MEDS: DEXTROSE 50% 50 ML SYRINGE IV (09:31)
[2018-03-01] MEDS: NEOMYC/POLYMYX/BACIT 30 GM OINT TOP (12:51)
[2018-03-01] MEDS: CLOTRIMAZOLE 1% 30 GM CR TOP ×2 (12:51→21:38)
[2018-03-01] MEDS ORDERED: DEXTROSE 10% 250 ML IV (16:00)
[2018-03-01] MEDS: PIPER-TAZO 2.25 GM (PMX) 50 ML IVPB ×2 (16:52→21:35)
[2018-03-01] MEDS: DEXTROSE 10% 1,000 ML IV (16:53)
[2018-03-02] MEDS: PIPER-TAZO 2.25 GM (PMX) 50 ML IVPB ×3 (06:07→21:59)
[2018-03-02] MEDS: HYDROCODONE/APAP (5/325) TAB PO (06:07)
[2018-03-02] MEDS: ACCU-CHEK XX ×3 (07:20→18:11)
[2018-03-02] MEDS: DOCUSATE SODIUM 100 MG CAP PO ×2 (09:45→21:57)
[2018-03-02] MEDS: FERROUS SULFATE (EC) 325 MG TAB PO ×2 (09:45→21:57)
[2018-03-02] MEDS: FAMOTIDINE 20 MG TAB PO (09:45)
[2018-03-02] MEDS: HEPARIN 5,000 UNIT/1 ML VIAL SC ×2 (09:49→21:54)
[2018-03-02] MEDS: VITAMIN A & D 5 GM OINT PACKET TOP ×2 (09:50→21:57)
[2018-03-02] MEDS: NEOMYC/POLYMYX/BACIT 30 GM OINT TOP (09:57)
[2018-03-02] MEDS: CLOTRIMAZOLE 1% 30 GM CR TOP ×2 (09:57→21:58)
[2018-03-02] MEDS: SEVELAMER CARBONATE 0.8 GM PKT PO ×3 (10:01→18:11)
[2018-03-02] MEDS: ONDANSETRON 4 MG INJ IV (15:52)
[2018-03-02] MEDS: DEXTROSE 10% 1,000 ML IV (16:30)
[2018-03-03] MEDS: PIPER-TAZO 2.25 GM (PMX) 50 ML IVPB ×3 (06:14→21:11)
[2018-03-03] MEDS: ACETAMINOPHEN 325 MG TAB PO ×3 (06:52→19:46)
[2018-03-03] MEDS: ACCU-CHEK XX ×3 (07:20→17:27)
[2018-03-03] MEDS: FERROUS SULFATE (EC) 325 MG TAB PO ×2 (08:58→21:12)
[2018-03-03] MEDS: DOCUSATE SODIUM 100 MG CAP PO ×2 (08:58→21:11)
[2018-03-03] MEDS: HEPARIN 5,000 UNIT/1 ML VIAL SC ×2 (08:58→21:13)
[2018-03-03] MEDS: SEVELAMER CARBONATE 0.8 GM PKT PO ×3 (08:58→17:44)
[2018-03-03] MEDS: FAMOTIDINE 20 MG TAB PO (08:58)
[2018-03-03] MEDS: DEXTROSE 10% 1,000 ML IV (08:59)
[2018-03-03] MEDS: PETROLATUM 28.35 GM JELLY TOP ×2 (09:00→21:00)
[2018-03-03] MEDS: NEOMYC/POLYMYX/BACIT 30 GM OINT TOP (09:00)
[2018-03-03] MEDS: CLOTRIMAZOLE 1% 30 GM CR TOP ×2 (09:00→21:15)
[2018-03-03] MEDS ORDERED: VITAMIN A & D 5 GM OINT PACKET TOP (22:06)
[2018-03-03] MEDS: ONDANSETRON 4 MG INJ IV (23:15)
[2018-03-04] MEDS: ACETAMINOPHEN 325 MG TAB PO ×2 (04:43→12:29)
[2018-03-04] MEDS: DEXTROSE 10% 1,000 ML IV ×2 (04:44→08:30)
[2018-03-04] MEDS: PIPER-TAZO 2.25 GM (PMX) 50 ML IVPB ×4 (05:31→22:00)
[2018-03-04 05:46] LABS: ANION GAP 12 (5-13); BLOOD UREA NITROGEN 38 mg/dl (7-20); CALCIUM 9.1 mg/dl (8.4-10.2); CARBON DIOXIDE 28 mmol/L (21-31); CHLORIDE 91 mmol/L (97-110); CREATININE 9.32 mg/dl (0.44-1.00); Estimated GFR 5 mL/min (>60); GLUCOSE 102 mg/dl (70-220); PHOSPHORUS 5.7 mg/dl (2.5-4.9); POTASSIUM 4.4 mmol/L (3.5-5.1); SODIUM 131 mmol/L (135-144)
[2018-03-04] MEDS: ACCU-CHEK XX ×3 (08:55→18:07)
[2018-03-04] MEDS: SEVELAMER CARBONATE 0.8 GM PKT PO ×3 (09:03→18:04)
[2018-03-04] MEDS: FAMOTIDINE 20 MG TAB PO (09:03)
[2018-03-04] MEDS: FERROUS SULFATE (EC) 325 MG TAB PO ×2 (09:03→21:12)
[2018-03-04] MEDS: DOCUSATE SODIUM 100 MG CAP PO ×2 (09:03→21:12)
[2018-03-04] MEDS: NEOMYC/POLYMYX/BACIT 30 GM OINT TOP (09:04)
[2018-03-04] MEDS: CLOTRIMAZOLE 1% 30 GM CR TOP ×2 (09:04→21:13)
[2018-03-04] MEDS: HEPARIN 5,000 UNIT/1 ML VIAL SC ×2 (09:04→21:15)
[2018-03-04] MEDS: PETROLATUM 28.35 GM JELLY TOP ×2 (11:37→21:12)
[2018-03-04] MEDS: ALBUMIN HUMAN 25% 100 ML IV (13:44)
[2018-03-04] MEDS: HEPARIN 1000 UNITS/ML 10 ML INJ CATHETER (16:42)
[2018-03-04] MEDS: LORAZEPAM 2 MG INJ IV (20:30)
[2018-03-05] MEDS: BISACODYL (EC) 5 MG TAB PO (01:33)
[2018-03-05] MEDS: ACETAMINOPHEN 325 MG TAB PO (04:28)
[2018-03-05] MEDS: PIPER-TAZO 2.25 GM (PMX) 50 ML IVPB ×3 (05:22→21:39)
[2018-03-05] MEDS: DEXTROSE 10% 1,000 ML IV (08:30)
[2018-03-05] MEDS: DOCUSATE SODIUM 100 MG CAP PO ×2 (09:00→20:47)
[2018-03-05] MEDS: FERROUS SULFATE (EC) 325 MG TAB PO ×2 (09:00→21:00)
[2018-03-05] MEDS: ACCU-CHEK XX ×3 (09:05→18:47)
[2018-03-05] MEDS: SEVELAMER CARBONATE 0.8 GM PKT PO ×3 (09:05→18:47)
[2018-03-05] MEDS: FAMOTIDINE 20 MG TAB PO (09:06)
[2018-03-05] MEDS: HEPARIN 5,000 UNIT/1 ML VIAL SC ×2 (09:11→21:24)
[2018-03-05] MEDS: CLOTRIMAZOLE 1% 30 GM CR TOP ×2 (15:34→21:28)
[2018-03-05] MEDS: PETROLATUM 28.35 GM JELLY TOP ×2 (15:34→21:28)
[2018-03-05] MEDS: NEOMYC/POLYMYX/BACIT 30 GM OINT TOP (15:34)
[2018-03-05] MEDS: HYDROCODONE/APAP (5/325) TAB PO (23:27)
[2018-03-06] MEDS: PIPER-TAZO 2.25 GM (PMX) 50 ML IVPB ×3 (05:56→22:33)
[2018-03-06] MEDS: HYDROCODONE/APAP (5/325) TAB PO ×3 (06:00→17:06)
[2018-03-06] MEDS: DEXTROSE 10% 1,000 ML IV ×2 (08:30→18:28)
[2018-03-06] MEDS: SEVELAMER CARBONATE 0.8 GM PKT PO ×3 (08:41→17:55)
[2018-03-06] MEDS: FERROUS SULFATE (EC) 325 MG TAB PO ×2 (08:42→20:54)
[2018-03-06] MEDS: FAMOTIDINE 20 MG TAB PO (08:42)
[2018-03-06] MEDS: PETROLATUM 28.35 GM JELLY TOP ×2 (08:46→20:50)
[2018-03-06] MEDS: CLOTRIMAZOLE 1% 30 GM CR TOP ×2 (08:46→20:50)
[2018-03-06] MEDS: HEPARIN 5,000 UNIT/1 ML VIAL SC ×2 (08:46→20:52)
[2018-03-06] MEDS: NEOMYC/POLYMYX/BACIT 30 GM OINT TOP (08:47)
[2018-03-06] MEDS: ACCU-CHEK XX ×3 (08:49→18:28)
[2018-03-06] MEDS: DOCUSATE SODIUM 100 MG CAP PO ×2 (09:00→20:54)
[2018-03-06] MEDS: HEPARIN 1000 UNITS/ML 10 ML INJ CATHETER (19:42)
[2018-03-06] MEDS: ACETAMINOPHEN 325 MG TAB PO (23:27)
[2018-03-07] MEDS: PIPER-TAZO 2.25 GM (PMX) 50 ML IVPB (05:12)
[2018-03-07] MEDS: ACCU-CHEK XX ×3 (08:32→17:25)
[2018-03-07] MEDS: SEVELAMER CARBONATE 0.8 GM PKT PO ×3 (08:34→17:55)
[2018-03-07] MEDS: FERROUS SULFATE (EC) 325 MG TAB PO ×3 (08:34→21:00)
[2018-03-07] MEDS: FAMOTIDINE 20 MG TAB PO (08:34)
[2018-03-07] MEDS: NEOMYC/POLYMYX/BACIT 30 GM OINT TOP (08:34)
[2018-03-07] MEDS: DOCUSATE SODIUM 100 MG CAP PO ×3 (08:34→21:00)
[2018-03-07] MEDS: PETROLATUM 28.35 GM JELLY TOP ×2 (08:35→20:43)
[2018-03-07] MEDS: CLOTRIMAZOLE 1% 30 GM CR TOP ×2 (08:35→20:43)
[2018-03-07] MEDS: HEPARIN 5,000 UNIT/1 ML VIAL SC ×2 (08:37→20:51)
[2018-03-07] MEDS: ACETAMINOPHEN 325 MG TAB PO ×2 (13:01→20:54)
== END 2018-03-07 23:15 | DRG 480 ==
LOC: MS1 02-17 22:45 → E/R 01:13 → MS1 05:32
PROVIDERS: Internal Medicine
PROC: 0QS704Z Reposition Left Upper Femur with Internal Fixation Device, Open Approach (ICD-10-PCS; principal; 2018-02-20 14:00)
PROC: 5A1D70Z Performance of Urinary Filtration, Intermittent, Less than 6 Hours Per Day (ICD-10-PCS; 2018-02-20 15:06)
PROC: 5A1D70Z Performance of Urinary Filtration, Intermittent, Less than 6 Hours Per Day (ICD-10-PCS; 2018-02-20 15:06)
PROC: 5A1D70Z Performance of Urinary Filtration, Intermittent, Less than 6 Hours Per Day (ICD-10-PCS; 2018-02-20 15:06)
PROC: 5A1D70Z Performance of Urinary Filtration, Intermittent, Less than 6 Hours Per Day (ICD-10-PCS; 2018-02-20 15:06)
PROC: 5A1D70Z Performance of Urinary Filtration, Intermittent, Less than 6 Hours Per Day (ICD-10-PCS; 2018-02-20 15:06)
PROC: 5A1D70Z Performance of Urinary Filtration, Intermittent, Less than 6 Hours Per Day (ICD-10-PCS; 2018-02-20 15:06)
PROC: 5A1D70Z Performance of Urinary Filtration, Intermittent, Less than 6 Hours Per Day (ICD-10-PCS; 2018-02-20 15:06)
PROC: 5A1D70Z Performance of Urinary Filtration, Intermittent, Less than 6 Hours Per Day (ICD-10-PCS; 2018-02-20 15:06)
PROC: 5A1D70Z Performance of Urinary Filtration, Intermittent, Less than 6 Hours Per Day (ICD-10-PCS; 2018-02-20 15:06)
PROC: 5A1D70Z Performance of Urinary Filtration, Intermittent, Less than 6 Hours Per Day (ICD-10-PCS; 2018-02-20 15:06)
PROC: 5A1D70Z Performance of Urinary Filtration, Intermittent, Less than 6 Hours Per Day (ICD-10-PCS; 2018-02-20 15:06)
PROC: 30233N1 Transfusion of Nonautologous Red Blood Cells into Peripheral Vein, Percutaneous Approach (ICD-10-PCS; 2018-02-20 15:06)
DX: S72.452A Displaced supracondylar fracture without intracondylar extension of lower end of left femur, initial encounter for closed fracture (principal); N18.6 End stage renal disease; J18.9 Pneumonia, unspecified organism; I12.0 Hypertensive chronic kidney disease with stage 5 chronic kidney disease or end stage renal disease; I69.354 Hemiplegia and hemiparesis following cerebral infarction affecting left non-dominant side; G93.40 Encephalopathy, unspecified; E11.22 Type 2 diabetes mellitus with diabetic chronic kidney disease; Z99.2 Dependence on renal dialysis; D63.1 Anemia in chronic kidney disease; E87.5 Hyperkalemia; I25.10 Atherosclerotic heart disease of native coronary artery without angina pectoris
CPT/HCPCS: 36430; 70450; 70551; 71045; 73550; 73560; 73562; 80048; 80053; 80061; 81001; 82140; 82550; 82553; 82962; 83036; 83735; 84100; 84484; 85014; 85018; 85025; 86644; 86850; 86900; 86901; 86920; 87081; 87086; 87340; 90935; 93005; 93306; 97110; 97163; 97530; 99285-25

== ENCOUNTER 2018-03-07 23:20 | Inpatient (IN) | payer MEDICARE, BC ==
[2018-03-08] MEDS ORDERED: ONDANSETRON 4 MG INJ IV (01:00)
[2018-03-08] MEDS ORDERED: GLUCOSE GEL 15 GRAM TUBE BUCCAL (01:00)
[2018-03-08] MEDS ORDERED: GLUCOSE GEL 15 GRAM TUBE PO (01:00)
[2018-03-08] MEDS ORDERED: BISACODYL (EC) 5 MG TAB PO (01:00)
[2018-03-08] MEDS ORDERED: DEXTROSE 50% 50 ML SYRINGE IV ×2 (01:00)
[2018-03-08] MEDS ORDERED: GLUCAGON 1 MG INJ IM (01:00)
[2018-03-08] MEDS ORDERED: PENDING SANTYL ORDER FOR WOUND CARE XX (02:00)
[2018-03-08] MEDS: HYDROCODONE/APAP (5/325) TAB PO ×4 (02:40→20:46)
[2018-03-08] MEDS: ACCU-CHEK XX ×3 (07:30→17:30)
[2018-03-08] MEDS: SEVELAMER CARBONATE 800 MG TABLET PO ×3 (09:48→17:39)
[2018-03-08] MEDS: FAMOTIDINE 20 MG TAB PO (09:48)
[2018-03-08] MEDS: DOCUSATE SODIUM 100 MG CAP PO ×2 (09:48→20:46)
[2018-03-08] MEDS: FERROUS SULFATE (EC) 325 MG TAB PO ×2 (09:48→20:45)
[2018-03-08] MEDS: NEOMYC/POLYMYX/BACIT 30 GM OINT TOP (09:49)
[2018-03-08] MEDS: PETROLATUM 28.35 GM JELLY TOP ×2 (09:49→20:50)
[2018-03-08] MEDS: HEPARIN 5,000 UNIT/1 ML VIAL SC ×2 (09:53→20:47)
[2018-03-08] MEDS: CLOTRIMAZOLE 1% 30 GM CR TOP ×2 (12:07→20:46)
[2018-03-08 12:49] LABS: ADD MAN DIFF? NO
[2018-03-08 12:51] LABS: WHITE BLOOD COUNT 5.7 10^3/ul (4.8-10.8)
[2018-03-08 12:51] LABS: BASOPHILS % 0.7 % (0.0-2.0); EOSINOPHILS # 0.2 10^3/ul (0.0-0.5); EOSINOPHILS % 3.7 % (0.0-7.0); HEMATOCRIT 24.2 % (37.0-47.0); HEMOGLOBIN 7.6 g/dl (12.0-16.0); LYMPHOCYTES # 1.6 10^3/ul (0.8-2.9); LYMPHOCYTES % 28.3 % (15.0-51.0); MEAN CORPUSCULAR HEMOGLOBIN 29.9 pg (29.0-33.0); MEAN CORPUSCULAR HGB CONC 31.4 g/dl (32.0-37.0); MEAN CORPUSCULAR VOLUME 95.3 fl (82.0-101.0); MEAN PLATELET VOLUME 9.1 fl (7.4-10.4); MONOCYTE # 0.6 10^3/ul (0.3-0.9); NEUTROPHIL # 3.2 10^3/ul (1.6-7.5); NEUTROPHILS % 55.6 % (39.0-77.0); PLATELET COUNT 304 10^3/UL (140-415); RED BLOOD COUNT 2.54 10^6/ul (4.20-5.40); RED CELL DISTRIBUTION WIDTH 15.1 % (11.5-14.5)
[2018-03-08 13:22] LABS: ANION GAP 13 (5-13); BLOOD UREA NITROGEN 26 mg/dl (7-20); CALCIUM 9.7 mg/dl (8.4-10.2); CARBON DIOXIDE 28 mmol/L (21-31); CHLORIDE 98 mmol/L (97-110); CREATININE 7.83 mg/dl (0.44-1.00); Estimated GFR 6 mL/min (>60); GLUCOSE 81 mg/dl (70-220); PHOSPHORUS 5.7 mg/dl (2.5-4.9); POTASSIUM 3.6 mmol/L (3.5-5.1); SODIUM 139 mmol/L (135-144)
[2018-03-08] MEDS: HEPARIN 1000 UNITS/ML 10 ML INJ CATHETER (15:59)
[2018-03-08] MEDS: EPOETIN 3000 UNITS/1 ML INJ (ESRD) IV (17:40)
[2018-03-09 06:43] LABS: ADD MAN DIFF? NO
[2018-03-09 06:47] LABS: BASOPHIL # 0.1 10^3/ul (0.0-0.1); EOSINOPHILS # 0.2 10^3/ul (0.0-0.5); EOSINOPHILS % 4.4 % (0.0-7.0); HEMATOCRIT 25.6 % (37.0-47.0); HEMOGLOBIN 7.9 g/dl (12.0-16.0); LYMPHOCYTES # 1.8 10^3/ul (0.8-2.9); LYMPHOCYTES % 34.8 % (15.0-51.0); MEAN CORPUSCULAR HEMOGLOBIN 29.6 pg (29.0-33.0); MEAN CORPUSCULAR HGB CONC 30.9 g/dl (32.0-37.0); MEAN CORPUSCULAR VOLUME 95.9 fl (82.0-101.0); MONOCYTE # 0.6 10^3/ul (0.3-0.9); MONOCYTES % 11.1 % (0.0-11.0); NEUTROPHIL # 2.4 10^3/ul (1.6-7.5); NEUTROPHILS % 48.5 % (39.0-77.0); PLATELET COUNT 345 10^3/UL (140-415); RED BLOOD COUNT 2.67 10^6/ul (4.20-5.40)
[2018-03-09 07:06] LABS: ALANINE AMINOTRANSFERASE 15 IU/L (13-69); ALBUMIN 3.6 g/dl (3.3-4.9); ALBUMIN/GLOBULIN RATIO 1.02; ALKALINE PHOSPHATASE 93 IU/L (42-121); ANION GAP 14 (5-13); ASPARTATE AMINO TRANSFERASE 20 IU/L (15-46); BILIRUBIN,INDIRECT 0.3 mg/dl (0-1.1); BILIRUBIN,TOTAL 0.3 mg/dl (0.2-1.3); BLOOD UREA NITROGEN 16 mg/dl (7-20); CALCIUM 9.9 mg/dl (8.4-10.2); CARBON DIOXIDE 29 mmol/L (21-31); CHLORIDE 101 mmol/L (97-110); CREATININE 5.36 mg/dl (0.44-1.00); Estimated GFR 10 mL/min (>60); GLUCOSE 81 mg/dl (70-220); POTASSIUM 3.8 mmol/L (3.5-5.1); SODIUM 144 mmol/L (135-144); TOTAL PROTEIN 7.1 g/dl (6.1-8.1)
[2018-03-09] MEDS: ACCU-CHEK XX ×3 (08:05→17:30)
[2018-03-09] MEDS: HYDROCODONE/APAP (5/325) TAB PO ×2 (08:12→23:35)
[2018-03-09] MEDS: DOCUSATE SODIUM 100 MG CAP PO ×2 (08:12→20:55)
[2018-03-09] MEDS: FAMOTIDINE 20 MG TAB PO (08:12)
[2018-03-09] MEDS: FERROUS SULFATE (EC) 325 MG TAB PO ×2 (08:12→20:55)
[2018-03-09] MEDS: SEVELAMER CARBONATE 800 MG TABLET PO ×3 (08:12→17:35)
[2018-03-09] MEDS: CLOTRIMAZOLE 1% 30 GM CR TOP ×2 (08:14→20:55)
[2018-03-09] MEDS: PETROLATUM 28.35 GM JELLY TOP ×2 (08:14→20:55)
[2018-03-09] MEDS: NEOMYC/POLYMYX/BACIT 30 GM OINT TOP (08:14)
[2018-03-09] MEDS: HEPARIN 5,000 UNIT/1 ML VIAL SC ×2 (08:20→20:55)
[2018-03-09] MEDS: ACETAMINOPHEN 325 MG TAB PO (10:36)
[2018-03-09] MEDS: CLOPIDOGREL 75 MG TAB PO (14:00)
[2018-03-10] MEDS: HYDROCODONE/APAP (5/325) TAB PO ×4 (06:13→23:56)
[2018-03-10] MEDS: ACCU-CHEK XX ×3 (07:30→17:30)
[2018-03-10] MEDS: SEVELAMER CARBONATE 800 MG TABLET PO ×3 (08:28→17:35)
[2018-03-10] MEDS: CLOPIDOGREL 75 MG TAB PO (08:29)
[2018-03-10] MEDS: HEPARIN 5,000 UNIT/1 ML VIAL SC ×2 (08:30→21:00)
[2018-03-10] MEDS: CLOTRIMAZOLE 1% 30 GM CR TOP ×2 (09:00→21:00)
[2018-03-10] MEDS: FAMOTIDINE 20 MG TAB PO (09:00)
[2018-03-10] MEDS: PETROLATUM 28.35 GM JELLY TOP ×2 (09:00→21:00)
[2018-03-10] MEDS: DOCUSATE SODIUM 100 MG CAP PO ×2 (09:00→21:00)
[2018-03-10] MEDS: FERROUS SULFATE (EC) 325 MG TAB PO ×2 (09:00→21:00)
[2018-03-10] MEDS: NEOMYC/POLYMYX/BACIT 30 GM OINT TOP (10:29)
[2018-03-11] MEDS: SEVELAMER CARBONATE 800 MG TABLET PO ×3 (07:35→17:32)
[2018-03-11] MEDS: ACCU-CHEK XX ×3 (08:09→17:32)
[2018-03-11] MEDS: HYDROCODONE/APAP (5/325) TAB PO ×3 (08:46→21:23)
[2018-03-11] MEDS: DOCUSATE SODIUM 100 MG CAP PO ×2 (08:49→21:00)
[2018-03-11] MEDS: FERROUS SULFATE (EC) 325 MG TAB PO ×2 (08:49→21:00)
[2018-03-11] MEDS: CLOPIDOGREL 75 MG TAB PO (08:50)
[2018-03-11] MEDS: FAMOTIDINE 20 MG TAB PO (08:50)
[2018-03-11] MEDS: HEPARIN 5,000 UNIT/1 ML VIAL SC ×2 (08:53→21:00)
[2018-03-11] MEDS: NEOMYC/POLYMYX/BACIT 30 GM OINT TOP (08:54)
[2018-03-11] MEDS: PETROLATUM 28.35 GM JELLY TOP ×2 (08:55→21:00)
[2018-03-11] MEDS: CLOTRIMAZOLE 1% 30 GM CR TOP ×2 (11:00→21:00)
[2018-03-11] MEDS: ALTEPLASE (CATHFLO) 2 MG INJ CATHETER (17:12)
[2018-03-11] MEDS: EPOETIN 3000 UNITS/1 ML INJ (ESRD) IV (17:32)
[2018-03-12] MEDS: HYDROCODONE/APAP (5/325) TAB PO ×3 (06:20→18:51)
[2018-03-12] MEDS: ACCU-CHEK XX ×3 (07:47→17:27)
[2018-03-12] MEDS: PETROLATUM 28.35 GM JELLY TOP ×2 (09:00→20:45)
[2018-03-12] MEDS: NEOMYC/POLYMYX/BACIT 30 GM OINT TOP (09:00)
[2018-03-12] MEDS: FAMOTIDINE 20 MG TAB PO (09:00)
[2018-03-12] MEDS: FERROUS SULFATE (EC) 325 MG TAB PO ×2 (09:00→20:44)
[2018-03-12] MEDS: DOCUSATE SODIUM 100 MG CAP PO ×2 (09:00→20:44)
[2018-03-12] MEDS: HEPARIN 5,000 UNIT/1 ML VIAL SC ×2 (09:47→20:44)
[2018-03-12] MEDS: CLOPIDOGREL 75 MG TAB PO (09:48)
[2018-03-12] MEDS: SEVELAMER CARBONATE 800 MG TABLET PO ×3 (09:48→18:51)
[2018-03-12] MEDS: CLOTRIMAZOLE 1% 30 GM CR TOP ×2 (09:52→20:44)
[2018-03-12] MEDS: HEPARIN 1000 UNITS/ML 10 ML INJ CATHETER (17:41)
[2018-03-13] MEDS: SEVELAMER CARBONATE 800 MG TABLET PO ×3 (07:35→17:21)
[2018-03-13] MEDS: ACCU-CHEK XX ×3 (07:59→17:30)
[2018-03-13] MEDS: CLOPIDOGREL 75 MG TAB PO (08:47)
[2018-03-13] MEDS: HEPARIN 5,000 UNIT/1 ML VIAL SC (08:53)
[2018-03-13] MEDS: FERROUS SULFATE (EC) 325 MG TAB PO (08:58)
[2018-03-13] MEDS: DOCUSATE SODIUM 100 MG CAP PO ×2 (08:59→21:00)
[2018-03-13] MEDS: CLOTRIMAZOLE 1% 30 GM CR TOP ×2 (08:59→21:00)
[2018-03-13] MEDS: FAMOTIDINE 20 MG TAB PO (08:59)
[2018-03-13] MEDS: NEOMYC/POLYMYX/BACIT 30 GM OINT TOP (08:59)
[2018-03-13] MEDS: PETROLATUM 28.35 GM JELLY TOP (08:59)
[2018-03-13] MEDS: HYDROCODONE/APAP (5/325) TAB PO ×3 (09:22→21:38)
[2018-03-14] MEDS: EPOETIN 3000 UNITS/1 ML INJ (ESRD) IV (00:18)
[2018-03-14] MEDS: HEPARIN 1000 UNITS/ML 10 ML INJ CATHETER (00:21)
[2018-03-14] MEDS: FERROUS SULFATE (EC) 325 MG TAB PO ×3 (00:24→21:04)
[2018-03-14] MEDS: PETROLATUM 28.35 GM JELLY TOP ×3 (00:26→21:00)
[2018-03-14] MEDS: HEPARIN 5,000 UNIT/1 ML VIAL SC ×3 (00:30→21:07)
[2018-03-14 07:20] LABS: HEMOGLOBIN 8.9 g/dl (12.0-16.0)
[2018-03-14 07:20] LABS: HEMATOCRIT 28.6 % (37.0-47.0)
[2018-03-14] MEDS: ACCU-CHEK XX ×3 (08:29→17:40)
[2018-03-14] MEDS: CLOPIDOGREL 75 MG TAB PO (08:30)
[2018-03-14] MEDS: SEVELAMER CARBONATE 800 MG TABLET PO ×4 (08:30→17:44)
[2018-03-14] MEDS: FAMOTIDINE 20 MG TAB PO (08:30)
[2018-03-14] MEDS: ACETAMINOPHEN 325 MG TAB PO (08:35)
[2018-03-14] MEDS: NEOMYC/POLYMYX/BACIT 30 GM OINT TOP (09:00)
[2018-03-14] MEDS: CLOTRIMAZOLE 1% 30 GM CR TOP ×2 (09:00→21:00)
[2018-03-14] MEDS: DOCUSATE SODIUM 100 MG CAP PO ×2 (09:00→21:00)
[2018-03-14] MEDS: BISACODYL 10 MG SUPP PR (14:17)
[2018-03-14] MEDS: HYDROCODONE/APAP (5/325) TAB PO (21:04)
[2018-03-15] MEDS: HYDROCODONE/APAP (5/325) TAB PO ×3 (06:45→21:28)
[2018-03-15] MEDS: SEVELAMER CARBONATE 800 MG TABLET PO ×5 (07:49→21:37)
[2018-03-15] MEDS: ACCU-CHEK XX ×3 (07:50→17:35)
[2018-03-15] MEDS: DOCUSATE SODIUM 100 MG CAP PO ×2 (09:00→21:14)
[2018-03-15] MEDS: CLOTRIMAZOLE 1% 30 GM CR TOP ×2 (09:00→21:00)
[2018-03-15] MEDS: FERROUS SULFATE (EC) 325 MG TAB PO ×3 (11:52→21:28)
[2018-03-15] MEDS: NEOMYC/POLYMYX/BACIT 30 GM OINT TOP (11:53)
[2018-03-15] MEDS: FAMOTIDINE 20 MG TAB PO (11:53)
[2018-03-15] MEDS: CLOPIDOGREL 75 MG TAB PO (11:53)
[2018-03-15] MEDS: PETROLATUM 28.35 GM JELLY TOP ×2 (11:56→21:00)
[2018-03-15] MEDS: HEPARIN 5,000 UNIT/1 ML VIAL SC ×2 (12:02→21:30)
[2018-03-15] MEDS: EPOETIN 3000 UNITS/1 ML INJ (ESRD) IV (18:00)
[2018-03-15] MEDS: HEPARIN 1000 UNITS/ML 10 ML INJ CATHETER (20:52)
[2018-03-16] MEDS: ACCU-CHEK XX ×3 (07:53→17:17)
[2018-03-16] MEDS: SEVELAMER CARBONATE 800 MG TABLET PO ×3 (07:53→17:31)
[2018-03-16] MEDS: HYDROCODONE/APAP (5/325) TAB PO ×3 (08:01→20:03)
[2018-03-16] MEDS: FERROUS SULFATE (EC) 325 MG TAB PO ×2 (08:12→20:03)
[2018-03-16] MEDS: CLOPIDOGREL 75 MG TAB PO (08:12)
[2018-03-16] MEDS: FAMOTIDINE 20 MG TAB PO (08:13)
[2018-03-16] MEDS: DOCUSATE SODIUM 100 MG CAP PO ×2 (08:13→20:06)
[2018-03-16] MEDS: CLOTRIMAZOLE 1% 30 GM CR TOP ×2 (08:14→20:07)
[2018-03-16] MEDS: HEPARIN 5,000 UNIT/1 ML VIAL SC ×3 (08:14→20:06)
[2018-03-16] MEDS: PETROLATUM 28.35 GM JELLY TOP ×2 (08:15→20:08)
[2018-03-16] MEDS: NEOMYC/POLYMYX/BACIT 30 GM OINT TOP (08:15)
[2018-03-16] MEDS: GLUCOSE GEL 15 GRAM TUBE PO (11:28)
[2018-03-16] MEDS: BISACODYL 10 MG SUPP PR (17:48)
[2018-03-17] MEDS: HYDROCODONE/APAP (5/325) TAB PO ×4 (01:43→21:51)
[2018-03-17] MEDS: ACCU-CHEK XX ×3 (08:15→17:40)
[2018-03-17] MEDS: CLOTRIMAZOLE 1% 30 GM CR TOP ×2 (09:00→21:00)
[2018-03-17] MEDS: FAMOTIDINE 20 MG TAB PO (09:00)
[2018-03-17] MEDS: DOCUSATE SODIUM 100 MG CAP PO ×2 (09:00→21:00)
[2018-03-17] MEDS: PETROLATUM 28.35 GM JELLY TOP ×2 (09:00→21:00)
[2018-03-17] MEDS: HEPARIN 5,000 UNIT/1 ML VIAL SC ×2 (09:04→21:53)
[2018-03-17] MEDS: CLOPIDOGREL 75 MG TAB PO (09:05)
[2018-03-17] MEDS: NEOMYC/POLYMYX/BACIT 30 GM OINT TOP (09:05)
[2018-03-17] MEDS: SEVELAMER CARBONATE 800 MG TABLET PO ×3 (09:06→17:55)
[2018-03-17] MEDS: FERROUS SULFATE (EC) 325 MG TAB PO ×2 (09:06→21:00)
[2018-03-17] MEDS: BISACODYL 10 MG SUPP PR (19:53)
[2018-03-17] MEDS: DICLOFENAC SODIUM 1% GEL 100 GM TUBE TP (20:30)
[2018-03-18] MEDS: ACCU-CHEK XX ×3 (08:23→17:40)
[2018-03-18] MEDS: SEVELAMER CARBONATE 800 MG TABLET PO ×3 (08:25→17:41)
[2018-03-18] MEDS: HYDROCODONE/APAP (5/325) TAB PO ×2 (08:25→22:33)
[2018-03-18] MEDS: NEOMYC/POLYMYX/BACIT 30 GM OINT TOP ×2 (08:32→08:41)
[2018-03-18] MEDS: HEPARIN 5,000 UNIT/1 ML VIAL SC ×2 (08:37→22:35)
[2018-03-18] MEDS: DOCUSATE SODIUM 100 MG CAP PO ×2 (08:38→21:00)
[2018-03-18] MEDS: FERROUS SULFATE (EC) 325 MG TAB PO ×2 (08:39→22:35)
[2018-03-18] MEDS: FAMOTIDINE 20 MG TAB PO (08:39)
[2018-03-18] MEDS: CLOPIDOGREL 75 MG TAB PO (08:39)
[2018-03-18] MEDS: PETROLATUM 28.35 GM JELLY TOP ×2 (08:40→22:37)
[2018-03-18] MEDS: CLOTRIMAZOLE 1% 30 GM CR TOP ×2 (08:40→22:35)
[2018-03-18 09:59] LABS: HEMOGLOBIN 9.5 g/dl (12.0-16.0)
[2018-03-18] MEDS: ACETAMINOPHEN 325 MG TAB PO (10:28)
[2018-03-18] MEDS: DICLOFENAC SODIUM 1% GEL 100 GM TUBE TP ×4 (13:00→22:36)
[2018-03-18 19:29] LABS: ANION GAP 11 (5-13); BLOOD UREA NITROGEN 30 mg/dl (7-20); CARBON DIOXIDE 26 mmol/L (21-31); CHLORIDE 104 mmol/L (97-110); CREATININE 10.26 mg/dl (0.44-1.00); Estimated GFR 5 mL/min (>60); GLUCOSE 93 mg/dl (70-220); POTASSIUM 4.6 mmol/L (3.5-5.1); SODIUM 141 mmol/L (135-144)
[2018-03-18 21:52] LABS: HEPATITIS B SURFACE ANTIGEN NEGATIVE (NEGATIVE)
[2018-03-18] MEDS: EPOETIN 4000 UNITS/1 ML INJ (ESRD) IV (22:15)
[2018-03-18] MEDS: HEPARIN 1000 UNITS/ML 10 ML INJ CATHETER (22:29)
[2018-03-19] MEDS: HYDROCODONE/APAP (5/325) TAB PO ×3 (04:07→22:03)
[2018-03-19] MEDS: SEVELAMER CARBONATE 800 MG TABLET PO ×3 (07:55→17:49)
[2018-03-19] MEDS: ACCU-CHEK XX ×3 (07:55→17:49)
[2018-03-19] MEDS: DOCUSATE SODIUM 100 MG CAP PO ×2 (09:00→21:00)
[2018-03-19] MEDS: NEOMYC/POLYMYX/BACIT 30 GM OINT TOP (09:00)
[2018-03-19] MEDS: CLOPIDOGREL 75 MG TAB PO (09:15)
[2018-03-19] MEDS: FERROUS SULFATE (EC) 325 MG TAB PO ×2 (09:15→21:00)
[2018-03-19] MEDS: HEPARIN 5,000 UNIT/1 ML VIAL SC ×2 (09:16→21:00)
[2018-03-19] MEDS: DICLOFENAC SODIUM 1% GEL 100 GM TUBE TP ×4 (09:19→21:00)
[2018-03-19] MEDS: PETROLATUM 28.35 GM JELLY TOP ×2 (09:19→21:00)
[2018-03-19] MEDS: CLOTRIMAZOLE 1% 30 GM CR TOP ×2 (09:19→21:00)
[2018-03-19] MEDS: FAMOTIDINE 20 MG TAB PO (09:28)
[2018-03-20] MEDS: HYDROCODONE/APAP (5/325) TAB PO ×3 (06:22→22:12)
[2018-03-20 07:18] LABS: ANION GAP 12 (5-13); BLOOD UREA NITROGEN 27 mg/dl (7-20); CALCIUM 10.5 mg/dl (8.4-10.2); CARBON DIOXIDE 22 mmol/L (21-31); CHLORIDE 104 mmol/L (97-110); CREATININE 9.55 mg/dl (0.44-1.00); Estimated GFR 5 mL/min (>60); GLUCOSE 69 mg/dl (70-220); SODIUM 138 mmol/L (135-144)
[2018-03-20] MEDS: SEVELAMER CARBONATE 800 MG TABLET PO ×3 (07:44→17:26)
[2018-03-20] MEDS: ACCU-CHEK XX ×3 (07:46→17:26)
[2018-03-20] MEDS: CLOPIDOGREL 75 MG TAB PO (08:14)
[2018-03-20] MEDS: DOCUSATE SODIUM 100 MG CAP PO ×3 (08:15→21:00)
[2018-03-20] MEDS: HEPARIN 5,000 UNIT/1 ML VIAL SC ×2 (08:15→21:00)
[2018-03-20] MEDS: FAMOTIDINE 20 MG TAB PO ×2 (08:15→08:48)
[2018-03-20] MEDS: FERROUS SULFATE (EC) 325 MG TAB PO ×2 (08:15→21:00)
[2018-03-20] MEDS: DICLOFENAC SODIUM 1% GEL 100 GM TUBE TP ×4 (08:16→21:00)
[2018-03-20] MEDS: NEOMYC/POLYMYX/BACIT 30 GM OINT TOP (08:17)
[2018-03-20] MEDS: PETROLATUM 28.35 GM JELLY TOP ×2 (08:17→21:00)
[2018-03-20] MEDS: CLOTRIMAZOLE 1% 30 GM CR TOP ×2 (08:17→21:00)
[2018-03-20] MEDS ORDERED: SOD CHLORIDE 0.9% 1,000 ML IV (13:27)
[2018-03-20] MEDS ORDERED: SODIUM CHLORIDE 0.9% 1L BAG IV (13:30)
[2018-03-20] MEDS: EPOETIN 4000 UNITS/1 ML INJ (ESRD) IV (17:24)
[2018-03-20] MEDS: HEPARIN 1000 UNITS/ML 10 ML INJ CATHETER (20:36)
[2018-03-21] MEDS: HYDROCODONE/APAP (5/325) TAB PO ×4 (08:15→20:43)
[2018-03-21] MEDS: ACCU-CHEK XX ×3 (08:15→18:10)
[2018-03-21] MEDS: SEVELAMER CARBONATE 800 MG TABLET PO ×3 (08:15→18:11)
[2018-03-21] MEDS: CLOTRIMAZOLE 1% 30 GM CR TOP ×2 (09:00→21:00)
[2018-03-21] MEDS: FAMOTIDINE 20 MG TAB PO (09:00)
[2018-03-21] MEDS: DOCUSATE SODIUM 100 MG CAP PO ×2 (09:00→21:00)
[2018-03-21] MEDS: FERROUS SULFATE (EC) 325 MG TAB PO ×2 (09:27→21:00)
[2018-03-21] MEDS: CLOPIDOGREL 75 MG TAB PO (09:27)
[2018-03-21] MEDS: NEOMYC/POLYMYX/BACIT 30 GM OINT TOP (09:28)
[2018-03-21] MEDS: HEPARIN 5,000 UNIT/1 ML VIAL SC ×2 (09:29→21:00)
[2018-03-21] MEDS: PETROLATUM 28.35 GM JELLY TOP ×2 (09:35→21:00)
[2018-03-21] MEDS: DICLOFENAC SODIUM 1% GEL 100 GM TUBE TP ×4 (09:36→21:00)
[2018-03-22] MEDS: ACCU-CHEK XX ×3 (08:05→18:39)
[2018-03-22] MEDS: SEVELAMER CARBONATE 800 MG TABLET PO ×3 (08:05→18:45)
[2018-03-22] MEDS: HYDROCODONE/APAP (5/325) TAB PO ×3 (08:21→17:14)
[2018-03-22] MEDS: FERROUS SULFATE (EC) 325 MG TAB PO ×2 (08:34→21:02)
[2018-03-22] MEDS: CLOPIDOGREL 75 MG TAB PO (08:34)
[2018-03-22] MEDS: HEPARIN 5,000 UNIT/1 ML VIAL SC ×2 (08:40→21:07)
[2018-03-22] MEDS: DICLOFENAC SODIUM 1% GEL 100 GM TUBE TP ×4 (08:41→21:04)
[2018-03-22] MEDS: NEOMYC/POLYMYX/BACIT 30 GM OINT TOP (08:41)
[2018-03-22] MEDS: FAMOTIDINE 20 MG TAB PO (08:45)
[2018-03-22] MEDS: DOCUSATE SODIUM 100 MG CAP PO ×2 (08:45→21:00)
[2018-03-22] MEDS: CLOTRIMAZOLE 1% 30 GM CR TOP ×2 (09:00→21:00)
[2018-03-22] MEDS: PETROLATUM 28.35 GM JELLY TOP ×2 (09:00→21:03)
[2018-03-22] MEDS: ALTEPLASE (CATHFLO) 2 MG INJ CATHETER (18:54)
[2018-03-22] MEDS: EPOETIN 4000 UNITS/1 ML INJ (ESRD) IV (18:54)
[2018-03-22] MEDS ORDERED: SODIUM CHLORIDE 0.9% 1L BAG IV (20:00)
[2018-03-22] MEDS ORDERED: SOD CHLORIDE 0.9% 1,000 ML IV (20:00)
[2018-03-22] MEDS: BISACODYL 10 MG SUPP PR (21:26)
[2018-03-23] MEDS: HYDROCODONE/APAP (5/325) TAB PO ×2 (00:15→05:41)
[2018-03-23] MEDS: ACCU-CHEK XX ×3 (08:19→17:49)
[2018-03-23] MEDS: SEVELAMER CARBONATE 800 MG TABLET PO ×3 (08:21→17:49)
[2018-03-23] MEDS: FERROUS SULFATE (EC) 325 MG TAB PO ×2 (08:21→21:00)
[2018-03-23] MEDS: FAMOTIDINE 20 MG TAB PO (08:21)
[2018-03-23] MEDS: CLOPIDOGREL 75 MG TAB PO (08:21)
[2018-03-23] MEDS: DOCUSATE SODIUM 100 MG CAP PO ×2 (08:22→21:00)
[2018-03-23] MEDS: NEOMYC/POLYMYX/BACIT 30 GM OINT TOP (08:23)
[2018-03-23] MEDS: PETROLATUM 28.35 GM JELLY TOP ×2 (08:23→21:00)
[2018-03-23] MEDS: CLOTRIMAZOLE 1% 30 GM CR TOP ×2 (08:23→21:00)
[2018-03-23] MEDS: DICLOFENAC SODIUM 1% GEL 100 GM TUBE TP ×4 (08:24→21:00)
[2018-03-23] MEDS: HEPARIN 5,000 UNIT/1 ML VIAL SC ×2 (08:29→21:00)
[2018-03-23] MEDS: HEPARIN 1000 UNITS/ML 10 ML INJ CATHETER (13:49)
[2018-03-23] MEDS: BISACODYL 10 MG SUPP PR (20:00)
[2018-03-24] MEDS: HYDROCODONE/APAP (5/325) TAB PO ×3 (05:07→20:50)
[2018-03-24] MEDS: CLOPIDOGREL 75 MG TAB PO (10:43)
[2018-03-24] MEDS: SEVELAMER CARBONATE 800 MG TABLET PO ×3 (10:44→17:33)
[2018-03-24] MEDS: FERROUS SULFATE (EC) 325 MG TAB PO ×2 (10:44→20:50)
[2018-03-24] MEDS: DOCUSATE SODIUM 100 MG CAP PO ×2 (10:44→21:00)
[2018-03-24] MEDS: FAMOTIDINE 20 MG TAB PO (10:44)
[2018-03-24] MEDS: ACCU-CHEK XX ×3 (10:45→17:35)
[2018-03-24] MEDS: NEOMYC/POLYMYX/BACIT 30 GM OINT TOP (10:46)
[2018-03-24] MEDS: DICLOFENAC SODIUM 1% GEL 100 GM TUBE TP ×4 (10:46→20:54)
[2018-03-24] MEDS: CLOTRIMAZOLE 1% 30 GM CR TOP ×2 (10:46→20:53)
[2018-03-24] MEDS: PETROLATUM 28.35 GM JELLY TOP ×2 (10:47→20:53)
[2018-03-24] MEDS: HEPARIN 5,000 UNIT/1 ML VIAL SC ×2 (10:56→20:53)
[2018-03-25] MEDS: ACCU-CHEK XX ×3 (07:30→17:30)
[2018-03-25] MEDS: CLOPIDOGREL 75 MG TAB PO (08:38)
[2018-03-25] MEDS: FERROUS SULFATE (EC) 325 MG TAB PO ×2 (08:38→21:00)
[2018-03-25] MEDS: SEVELAMER CARBONATE 800 MG TABLET PO ×3 (08:38→17:35)
[2018-03-25] MEDS: FAMOTIDINE 20 MG TAB PO (08:38)
[2018-03-25] MEDS: HYDROCODONE/APAP (5/325) TAB PO ×3 (08:38→22:41)
[2018-03-25] MEDS: HEPARIN 5,000 UNIT/1 ML VIAL SC ×2 (08:41→21:00)
[2018-03-25] MEDS: NEOMYC/POLYMYX/BACIT 30 GM OINT TOP (09:00)
[2018-03-25] MEDS: DOCUSATE SODIUM 100 MG CAP PO ×2 (09:00→21:00)
[2018-03-25] MEDS: PETROLATUM 28.35 GM JELLY TOP ×2 (09:00→21:00)
[2018-03-25] MEDS: CLOTRIMAZOLE 1% 30 GM CR TOP ×2 (09:00→21:00)
[2018-03-25] MEDS: ACETAMINOPHEN 325 MG TAB PO (10:11)
[2018-03-25] MEDS: DICLOFENAC SODIUM 1% GEL 100 GM TUBE TP ×4 (10:13→21:03)
[2018-03-25 11:31] LABS: HEMOGLOBIN 11.7 g/dl (12.0-16.0)
[2018-03-25] MEDS ORDERED: SODIUM CHLORIDE 0.9% 1L BAG IV (12:30)
[2018-03-25] MEDS: HEPARIN 1000 UNITS/ML 10 ML INJ CATHETER (18:45)
[2018-03-26] MEDS: DOCUSATE SODIUM 100 MG CAP PO ×2 (09:00→21:00)
[2018-03-26] MEDS: FAMOTIDINE 20 MG TAB PO (09:00)
[2018-03-26] MEDS: ACCU-CHEK XX ×3 (10:10→18:37)
[2018-03-26] MEDS: FERROUS SULFATE (EC) 325 MG TAB PO ×2 (10:14→21:00)
[2018-03-26] MEDS: SEVELAMER CARBONATE 800 MG TABLET PO ×3 (10:14→18:35)
[2018-03-26] MEDS: CLOPIDOGREL 75 MG TAB PO (10:14)
[2018-03-26] MEDS: HYDROCODONE/APAP (5/325) TAB PO ×2 (10:15→18:39)
[2018-03-26] MEDS: HEPARIN 5,000 UNIT/1 ML VIAL SC ×2 (10:16→21:00)
[2018-03-26] MEDS: CLOTRIMAZOLE 1% 30 GM CR TOP ×2 (10:20→21:00)
[2018-03-26] MEDS: DICLOFENAC SODIUM 1% GEL 100 GM TUBE TP ×4 (10:22→21:00)
[2018-03-26] MEDS: NEOMYC/POLYMYX/BACIT 30 GM OINT TOP (10:24)
[2018-03-26] MEDS: PETROLATUM 28.35 GM JELLY TOP ×2 (10:24→21:00)
[2018-03-27] MEDS: HYDROCODONE/APAP (5/325) TAB PO ×3 (03:23→19:40)
[2018-03-27] MEDS: ACCU-CHEK XX ×3 (08:30→17:43)
[2018-03-27] MEDS: SEVELAMER CARBONATE 800 MG TABLET PO ×3 (08:31→17:35)
[2018-03-27] MEDS: DOCUSATE SODIUM 100 MG CAP PO ×2 (09:00→21:00)
[2018-03-27] MEDS: FAMOTIDINE 20 MG TAB PO (09:00)
[2018-03-27] MEDS: FERROUS SULFATE (EC) 325 MG TAB PO ×2 (09:09→20:50)
[2018-03-27] MEDS: CLOPIDOGREL 75 MG TAB PO (09:09)
[2018-03-27] MEDS: PETROLATUM 28.35 GM JELLY TOP ×2 (09:31→21:00)
[2018-03-27] MEDS: DICLOFENAC SODIUM 1% GEL 100 GM TUBE TP ×4 (09:31→21:00)
[2018-03-27] MEDS: NEOMYC/POLYMYX/BACIT 30 GM OINT TOP (09:32)
[2018-03-27] MEDS: CLOTRIMAZOLE 1% 30 GM CR TOP ×2 (09:32→21:00)
[2018-03-27] MEDS: HEPARIN 5,000 UNIT/1 ML VIAL SC ×2 (09:42→20:52)
[2018-03-27] MEDS: ACETAMINOPHEN 325 MG TAB PO (13:40)
[2018-03-27] MEDS: ALBUMIN HUMAN 25% 100 ML IVPB (16:15)
[2018-03-27] MEDS: HEPARIN 1000 UNITS/ML 10 ML INJ CATHETER (18:38)
[2018-03-28] MEDS: SEVELAMER CARBONATE 800 MG TABLET PO ×3 (08:12→17:44)
[2018-03-28] MEDS: ACCU-CHEK XX ×3 (08:12→17:30)
[2018-03-28] MEDS: DOCUSATE SODIUM 100 MG CAP PO (09:00)
[2018-03-28] MEDS: DICLOFENAC SODIUM 1% GEL 100 GM TUBE TP ×3 (09:46→17:00)
[2018-03-28] MEDS: NEOMYC/POLYMYX/BACIT 30 GM OINT TOP (09:49)
[2018-03-28] MEDS: HEPARIN 5,000 UNIT/1 ML VIAL SC (09:51)
[2018-03-28] MEDS: CLOPIDOGREL 75 MG TAB PO (09:51)
[2018-03-28] MEDS: FERROUS SULFATE (EC) 325 MG TAB PO (09:52)
[2018-03-28] MEDS: FAMOTIDINE 20 MG TAB PO (09:52)
[2018-03-28] MEDS: CLOTRIMAZOLE 1% 30 GM CR TOP (09:53)
[2018-03-28] MEDS: PETROLATUM 28.35 GM JELLY TOP (09:53)
[2018-03-28] MEDS: HYDROCODONE/APAP (5/325) TAB PO (10:07)
== END 2018-03-28 17:50 | disposition home health service (06) | DRG 559 ==
LOC: VRC 03-09 11:20
PROVIDERS: Physical Medicine & Rehabilitation
PROC: F07Z5ZZ Bed Mobility Treatment (ICD-10-PCS; 2018-03-07)
PROC: F08Z2ZZ Grooming/Personal Hygiene Treatment (ICD-10-PCS; 2018-03-07)
PROC: 5A1D70Z Performance of Urinary Filtration, Intermittent, Less than 6 Hours Per Day (ICD-10-PCS; principal; 2018-03-08)
PROC: 5A1D70Z Performance of Urinary Filtration, Intermittent, Less than 6 Hours Per Day (ICD-10-PCS; 2018-03-11)
PROC: 5A1D70Z Performance of Urinary Filtration, Intermittent, Less than 6 Hours Per Day (ICD-10-PCS; 2018-03-12)
PROC: 5A1D70Z Performance of Urinary Filtration, Intermittent, Less than 6 Hours Per Day (ICD-10-PCS; 2018-03-13)
PROC: 5A1D70Z Performance of Urinary Filtration, Intermittent, Less than 6 Hours Per Day (ICD-10-PCS; 2018-03-14)
PROC: 5A1D70Z Performance of Urinary Filtration, Intermittent, Less than 6 Hours Per Day (ICD-10-PCS; 2018-03-15)
PROC: 5A1D70Z Performance of Urinary Filtration, Intermittent, Less than 6 Hours Per Day (ICD-10-PCS; 2018-03-18)
PROC: 5A1D70Z Performance of Urinary Filtration, Intermittent, Less than 6 Hours Per Day (ICD-10-PCS; 2018-03-20)
PROC: 5A1D70Z Performance of Urinary Filtration, Intermittent, Less than 6 Hours Per Day (ICD-10-PCS; 2018-03-22)
PROC: 5A1D70Z Performance of Urinary Filtration, Intermittent, Less than 6 Hours Per Day (ICD-10-PCS; 2018-03-23)
PROC: 5A1D70Z Performance of Urinary Filtration, Intermittent, Less than 6 Hours Per Day (ICD-10-PCS; 2018-03-25)
PROC: 5A1D70Z Performance of Urinary Filtration, Intermittent, Less than 6 Hours Per Day (ICD-10-PCS; 2018-03-27)
DX: S72.402D Unspecified fracture of lower end of left femur, subsequent encounter for closed fracture with routine healing (principal); N18.6 End stage renal disease; I69.954 Hemiplegia and hemiparesis following unspecified cerebrovascular disease affecting left non-dominant side; I12.0 Hypertensive chronic kidney disease with stage 5 chronic kidney disease or end stage renal disease; I10 Essential (primary) hypertension; Z99.2 Dependence on renal dialysis; D64.9 Anemia, unspecified; E87.5 Hyperkalemia; F06.31 Mood disorder due to known physiological condition with depressive features; E11.22 Type 2 diabetes mellitus with diabetic chronic kidney disease
CPT/HCPCS: 80048; 80053; 82962; 84100; 85014; 85018; 85025; 87081; 87340; 90935; 92523; 97110; 97112; 97163; 97167; 97530; 97535; 97542

== ENCOUNTER 2018-10-11 06:21 | Day surgery (SDC) | payer MEDICARE, BC ==
[2018-10-11] MEDS ORDERED: CEFAZOLIN 1 GM/50 ML (PMX) 50 ML IVPB (08:01)
[2018-10-11] MEDS ORDERED: FENTAnyl 50 MCG/ML VIAL (08:02)
[2018-10-11] MEDS ORDERED: MIDAZOLAM 1 MG/ML 2 ML INJ (08:02)
[2018-10-11] MEDS ORDERED: LIDOCAINE 1% (MDV) 20 ML INJ (08:22)
[2018-10-11] MEDS ORDERED: HEPARIN 1000 UNITS/ML 10 ML INJ (08:22)
== END 2018-10-11 09:34 | disposition home or self-care (01) ==
LOC: SDS 06:21
DX: T82.49XD Other complication of vascular dialysis catheter, subsequent encounter (principal); Y84.1 Kidney dialysis as the cause of abnormal reaction of the patient, or of later complication, without mention of misadventure at the time of the procedure; I12.0 Hypertensive chronic kidney disease with stage 5 chronic kidney disease or end stage renal disease; N18.6 End stage renal disease
CPT/HCPCS: 36578